=== PATIENT | male | born 1985 | race Caucasian/White ===

== ENCOUNTER 2017-01-21 11:10 | Inpatient (IN) | payer OTHER ==
[2017-01-21 11:24] VITALS: BMI 18.8
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
[2017-01-21] MEDS ORDERED: P-EPHED 60MG/TRIPROLIDI 2.5MG TABLET PO PRN (15:01)
[2017-01-21] MEDS ORDERED: MAGNESIUM CITRATE 300 ML BOTTLE PO PRN (15:01)
[2017-01-21] MEDS ORDERED: NICOTINE POLACRILEX 4 MG GUM BUC PRN (15:01)
[2017-01-21] MEDS ORDERED: MENTHOL/PHENOL 1 EACH UD MM PRN (15:01)
[2017-01-21] MEDS ORDERED: MAG HYDROX/AL HYDROX/SIMETH 30 ML UNIT-DOSE CUP PO PRN (15:01)
[2017-01-21] MEDS ORDERED: LOPERAMIDE HCL 2 MG CAPSULE PO PRN (15:01)
[2017-01-21] MEDS ORDERED: guaiFENesin/D-METHORPHAN HB 10 ML UNIT-DOSE CUPS PO PRN (15:01)
[2017-01-21] MEDS ORDERED: IBUPROFEN 400 MG TABLET (FP) PO PRN (15:01)
[2017-01-21] MEDS ORDERED: MAGNESIUM HYDROX 2400MG/30ML ORAL SUSPENSION 30 ML CUP PO PRN (15:01)
[2017-01-21] MEDS ORDERED: ACETAMINOPHEN 325 MG TABLET (FP) PO PRN (15:01)
[2017-01-21] MEDS ORDERED: diazePAM 5 MG TABLET PO ONE (15:30)
[2017-01-21] MEDS ORDERED: METHADONE HCL 10 MG TABLET (FOR DETOX USE ONLY) PO ONE ×2 (15:31→23:00)
[2017-01-21] MEDS: NICOTINE 21 MG/24 HOURS TOPICAL PATCH TD SCH (15:50)
[2017-01-21] MEDS: THIAMINE HCL 100 MG TABLET (FP) PO SCH (22:08)
[2017-01-21] MEDS: diphenhydrAMINE HCL 50 MG CAPSULE PO PRN (22:08)
[2017-01-21] MEDS: CEPHALEXIN MONOHYDRATE 500 MG CAPSULE (UD) PO SCH (22:08)
[2017-01-21] MEDS: diazePAM 5 MG TABLET PO SCH (22:08)
[2017-01-21] MEDS: BACITRACIN 0.9 GM PACKET TP SCH (22:08)
[2017-01-21 22:41] LABS: URINE APPEARANCE CLEAR; URINE BILIRUBIN NEGATIVE (NEGATIVE); URINE BLOOD NEGATIVE (NEGATIVE); URINE COLOR YELLOW; URINE GLUCOSE (UA) NEGATIVE (NEGATIVE); URINE KETONE TRACE (NEGATIVE); URINE LEUK ESTERASE NEGATIVE (NEGATIVE); URINE NITRITE NEGATIVE (NEGATIVE); URINE PROTEIN NEGATIVE (NEGATIVE); URINE UROBILINOGEN NEGATIVE E.U./dl (0.2-1.0)
[2017-01-22] MEDS: diazePAM 5 MG TABLET PO SCH ×3 (05:39→22:04)
[2017-01-22] MEDS ORDERED: METHADONE HCL 10 MG TABLET (FOR DETOX USE ONLY) PO SCH (10:00)
[2017-01-22 10:06] LABS: MCHC 33.6 g/dl (32.0-35.9); MEAN CELL VOLUME 95.2 fl (80-96); MEAN PLT VOLUME 9.3 fl (7.5-11.1); PLATELET COUNT 167 K/MM3 (134-434); RDW 12.5 % (11.9-15.9)
[2017-01-22] MEDS: NICOTINE 21 MG/24 HOURS TOPICAL PATCH TD SCH (10:13)
[2017-01-22] MEDS: BACITRACIN 0.9 GM PACKET TP SCH ×2 (10:13→22:04)
[2017-01-22] MEDS: CEPHALEXIN MONOHYDRATE 500 MG CAPSULE (UD) PO SCH ×2 (10:13→22:04)
[2017-01-22] MEDS: PRENATAL VITAMINS W/ FOLIC ACID TABLET (FP) PO SCH (10:13)
[2017-01-22] MEDS: diazePAM 5 MG TABLET PO PRN (10:13)
[2017-01-22 10:45] LABS: ALBUMIN 4.2 g/dl (3.4-5.0); ALK PHOS 96 U/L (45-117); ANION GAP 8 (8-16); BILIRUBIN,TOTAL 0.4 mg/dL (0.2-1.0); CALCIUM 9.5 mg/dL (8.5-10.1); CO2 30 mmol/L (21-32); GLUCOSE,RANDOM 70 mg/dL (74-106); SGOT/AST 14 U/L (15-37); SGPT/ALT 25 U/L (12-78); TOT PROT 7.7 g/dl (6.4-8.2)
--- NOTE | 2017-01-22 11:22 | PN ---
[facility] CIWA - CIWA Score Nausea/Vomitin-No Nausea/No Vomiting Muscle Tremors: 4-Moderate,w/Arms Extend Anxiety: 4-Mod. Anxious/Guarded Agitation: 4-Moderately Restless Paroxysmal Sweats: 1-Minimal Palms Moist Orientation: 0-Oriented Tacttile Disturbances: 3-Moderate Itch/Numb/Burn Auditory Disturbances: 0-None Visual Disturbances: 0-None Headache: 0-None Present CIWA-Ar Total Score: 16 S COWS - Scale Resting Pulse: 0= [place] 80 or Below Sweatin= Chills/Flushing Restless Observation: 3= Extraneous Movement Pupil Size: 2= Moderately Dilated Bone or Joint Aches: 4=Acute Joint/Muscle Pain Runny Nose/ Eye Tearin= Nasal Congestion GI Upset > 30mins: 1= Stomach Cramp Tremor Observation of Outstretched Hands: 2= Slight Tremor Visible Yawning Observation: 1= 1-2x During Session Anxiety or Irritability: 2=Irritable/Anxious Goose Flesh Skin: 0=Smooth Skin COWS Score: 17 S Progress Note (SOAP) Subjective: ANXIETY, SWEATS, MUSCLE ACHES, INTERMITTENT SLEEP. Objective: 01/22/17 11:21 Vital Signs Temperature 97.1 F L 01/22/17 09:30 Pulse Rate 80 01/22/17 09:30 Respiratory Rate 20 01/22/17 09:30 Blood Pressure 114/81 01/22/17 09:30 O2 Sat by Pulse Oximetry (%) Laboratory Last Values WBC 9.0 K/mm3 (4.0-10.0) 01/22/17 06:00 RBC 4.59 M/mm3 (4.00-5.60) 01/22/17 06:00 Hgb 14.7 GM/dL (11.7-16.9) 01/22/17 06:00 Hct 43.8 % (35.4-49) 01/22/17 06:00 MCV 95.2 fl (80-96) 01/22/17 06:00 MCHC 33.6 g/dl (32.0-35.9) 01/22/17 06:00 RDW 12.5 % (11.9-15.9) 01/22/17 06:00 Plt Count 167 K/MM3 (134-434) 01/22/17 06:00 MPV 9.3 fl (7.5-11.1) 01/22/17 06:00 Sodium 139 mmol/L (136-145) 01/22/17 06:00 Potassium 4.5 mmol/L (3.5-5.1) 01/22/17 06:00 Chloride 101 mmol/L (98-107) 01/22/17 06:00 Carbon Dioxide 30 mmol/L (21-32) 01/22/17 06:00 Anion Gap 8 (8-16) 01/22/17 06:00 BUN 15 mg/dL (7-18) 01/22/17 06:00 Creatinine 1.0 mg/dL (0.7-1.3) 01/22/17 06:00 Creat Clearance w eGFR > 60 (>60) 01/22/17 06:00 Random Glucose 70 mg/dL (74-106) L 01/22/17 06:00 Calcium 9.5 mg/dL (8.5-10.1) 01/22/17 06:00 Total Bilirubin 0.4 mg/dL (0.2-1.0) 01/22/17 06:00 AST 14 U/L (15-37) L 01/22/17 06:00 ALT 25 U/L (12-78) 01/22/17 06:00 Alkaline Phosphatase 96 U/L (45-117) 01/22/17 06:00 Total Protein 7.7 g/dl (6.4-8.2) 01/22/17 06:00 Albumin 4.2 g/dl (3.4-5.0) 01/22/17 06:00 Urine Color Yellow 01/21/17 19:38 Urine Appearance Clear 01/21/17 19:38 Urine pH 5.0 (5.0-8.0) 01/21/17 19:38 Ur Specific [place] 1.032 (1.001-1.035) 01/21/17 19:38 Urine Protein Negative (NEGATIVE) 01/21/17 19:38 Urine Glucose (UA) Negative (NEGATIVE) 01/21/17 19:38 Urine Ketones Trace (NEGATIVE) H 01/21/17 19:38 Urine Blood Negative (NEGATIVE) 01/21/17 19:38 Urine Nitrite Negative (NEGATIVE) 01/21/17 19:38 Urine Bilirubin Negative (NEGATIVE) 01/21/17 19:38 Urine Urobilinogen Negative E.U./dl (0.2-1.0) 01/21/17 19:38 Ur Leukocyte Esterase Negative (NEGATIVE) 01/21/17 19:38 Assessment: 01/22/17 11:21 WITHDRAWAL SX Plan: CONTINUE DETOX
[2017-01-22] MEDS: CYCLOBENZAPRINE HCL 10 MG TABLET (FP) PO SCH ×2 (13:46→22:04)
--- NOTE | 2017-01-22 13:55 | EKG ---
Test Reason : Blood Pressure : / mmHG Vent. Rate : 076 BPM Atrial Rate : 076 BPM P-R Int : 134 ms QRS Dur : 100 ms QT Int : 388 ms P-R-T Axes : 080 079 065 degrees QTc Int : 436 ms NORMAL SINUS RHYTHM POSSIBLE LEFT ATRIAL ENLARGEMENT LEFT VENTRICULAR HYPERTROPHY ABNORMAL ECG NO PREVIOUS ECGS AVAILABLE Confirmed by DONNELL FERNANDEZ MD ([id number]) on 01/22/2017 1:54:47 PM Referred By: Confirmed By:DONNELL FERNANDEZ MD
[2017-01-22] MEDS: diphenhydrAMINE HCL 50 MG CAPSULE PO PRN (22:04)
[2017-01-22] MEDS: THIAMINE HCL 100 MG TABLET (FP) PO SCH (22:05)
[2017-01-23] MEDS: CYCLOBENZAPRINE HCL 10 MG TABLET (FP) PO SCH ×3 (05:30→22:05)
[2017-01-23] MEDS: diazePAM 5 MG TABLET PO PRN (05:30)
--- NOTE | 2017-01-23 09:14 | PN ---
[facility] CIWA - CIWA Score Nausea/Vomitin-No Nausea/No Vomiting Muscle Tremors: 4-Moderate,w/Arms Extend Anxiety: 4-Mod. Anxious/Guarded Agitation: 4-Moderately Restless Paroxysmal Sweats: 1-Minimal Palms Moist Orientation: 0-Oriented Tacttile Disturbances: 3-Moderate Itch/Numb/Burn Auditory Disturbances: 0-None Visual Disturbances: 0-None Headache: 0-None Present CIWA-Ar Total Score: 16 [facility] COWS - Scale Resting Pulse: 0= [place] 80 or Below Sweatin= Chills/Flushing Restless Observation: 3= Extraneous Movement Pupil Size: 2= Moderately Dilated Bone or Joint Aches: 4=Acute Joint/Muscle Pain Runny Nose/ Eye Tearin= Nasal Congestion GI Upset > 30mins: 1= Stomach Cramp Tremor Observation of Outstretched Hands: 1= Tremor [place], Not Seen Yawning Observation: 1= 1-2x During Session Anxiety or Irritability: 1=Feels Anxious/Irritable Goose Flesh Skin: 0=Smooth Skin COWS Score: 15 [facility] Progress Note (SOAP) Subjective: ANXIETY,SWEATS,FATIGUE. Objective: 01/23/17 09:14 Vital Signs Temperature 95.4 F L 01/23/17 06:07 Pulse Rate 53 L 01/23/17 06:07 Respiratory Rate 16 01/23/17 06:07 Blood Pressure 98/67 01/23/17 06:07 O2 Sat by Pulse Oximetry (%) Laboratory Last Values WBC 9.0 K/mm3 (4.0-10.0) 01/22/17 06:00 RBC 4.59 M/mm3 (4.00-5.60) 01/22/17 06:00 Hgb 14.7 GM/dL (11.7-16.9) 01/22/17 06:00 Hct 43.8 % (35.4-49) 01/22/17 06:00 MCV 95.2 fl (80-96) 01/22/17 06:00 MCHC 33.6 g/dl (32.0-35.9) 01/22/17 06:00 RDW 12.5 % (11.9-15.9) 01/22/17 06:00 Plt Count 167 K/MM3 (134-434) 01/22/17 06:00 MPV 9.3 fl (7.5-11.1) 01/22/17 06:00 Sodium 139 mmol/L (136-145) 01/22/17 06:00 Potassium 4.5 mmol/L (3.5-5.1) 01/22/17 06:00 Chloride 101 mmol/L (98-107) 01/22/17 06:00 Carbon Dioxide 30 mmol/L (21-32) 01/22/17 06:00 Anion Gap 8 (8-16) 01/22/17 06:00 BUN 15 mg/dL (7-18) 01/22/17 06:00 Creatinine 1.0 mg/dL (0.7-1.3) 01/22/17 06:00 Creat Clearance w eGFR > 60 (>60) 01/22/17 06:00 Random Glucose 70 mg/dL (74-106) L 01/22/17 06:00 Calcium 9.5 mg/dL (8.5-10.1) 01/22/17 06:00 Total Bilirubin 0.4 mg/dL (0.2-1.0) 01/22/17 06:00 AST 14 U/L (15-37) L 01/22/17 06:00 ALT 25 U/L (12-78) 01/22/17 06:00 Alkaline Phosphatase 96 U/L (45-117) 01/22/17 06:00 Total Protein 7.7 g/dl (6.4-8.2) 01/22/17 06:00 Albumin 4.2 g/dl (3.4-5.0) 01/22/17 06:00 Urine Color Yellow 01/21/17 19:38 Urine Appearance Clear 01/21/17 19:38 Urine pH 5.0 (5.0-8.0) 01/21/17 19:38 Ur Specific [place] 1.032 (1.001-1.035) 01/21/17 19:38 Urine Protein Negative (NEGATIVE) 01/21/17 19:38 Urine Glucose (UA) Negative (NEGATIVE) 01/21/17 19:38 Urine Ketones Trace (NEGATIVE) H 01/21/17 19:38 Urine Blood Negative (NEGATIVE) 01/21/17 19:38 Urine Nitrite Negative (NEGATIVE) 01/21/17 19:38 Urine Bilirubin Negative (NEGATIVE) 01/21/17 19:38 Urine Urobilinogen Negative E.U./dl (0.2-1.0) 01/21/17 19:38 Ur Leukocyte Esterase Negative (NEGATIVE) 01/21/17 19:38 RPR Titer Nonreactive (NONREACTIVE) 01/22/17 06:00 Hepatitis C Antibody 0.3 s/co ratio (0.0-0.9) 01/21/17 13:00 Assessment: 01/23/17 09:14 WITHDRAWAL SX Plan: CONTINUE DETOX
[2017-01-23] MEDS: PRENATAL VITAMINS W/ FOLIC ACID TABLET (FP) PO SCH (10:03)
[2017-01-23] MEDS: BACITRACIN 0.9 GM PACKET TP SCH ×2 (10:03→22:07)
[2017-01-23] MEDS: METHADONE HCL 5 MG TABLET (FOR DETOX USE ONLY) PO SCH (10:03)
[2017-01-23] MEDS: diazePAM 5 MG TABLET PO SCH ×2 (10:03→22:05)
[2017-01-23] MEDS: CEPHALEXIN MONOHYDRATE 500 MG CAPSULE (UD) PO SCH ×2 (10:03→22:05)
[2017-01-23] MEDS: NICOTINE 21 MG/24 HOURS TOPICAL PATCH TD SCH (10:04)
[2017-01-23] MEDS: THIAMINE HCL 100 MG TABLET (FP) PO SCH (22:07)
[2017-01-23] MEDS: diphenhydrAMINE HCL 50 MG CAPSULE PO PRN (22:07)
[2017-01-24] MEDS: CYCLOBENZAPRINE HCL 10 MG TABLET (FP) PO SCH ×3 (05:35→22:06)
[2017-01-24] MEDS: diazePAM 5 MG TABLET PO PRN ×2 (05:36→13:29)
[2017-01-24] MEDS: BACITRACIN 0.9 GM PACKET TP SCH ×2 (10:05→22:06)
[2017-01-24] MEDS: METHADONE HCL 5 MG TABLET (FOR DETOX USE ONLY) PO SCH (10:05)
[2017-01-24] MEDS: CEPHALEXIN MONOHYDRATE 500 MG CAPSULE (UD) PO SCH ×2 (10:05→22:05)
[2017-01-24] MEDS: NICOTINE 21 MG/24 HOURS TOPICAL PATCH TD SCH (10:05)
[2017-01-24] MEDS: PRENATAL VITAMINS W/ FOLIC ACID TABLET (FP) PO SCH (10:05)
[2017-01-24] MEDS: diazePAM 5 MG TABLET PO SCH ×2 (10:05→22:06)
--- NOTE | 2017-01-24 10:06 | PN ---
[facility] Progress Note (SOAP) Subjective: ANXIETY,SWEATS,TREMORS,INTERMITTENT SLEEP Objective: 01/24/17 10:06 Vital Signs Temperature 98.8 F 01/24/17 09:39 Pulse Rate 73 01/24/17 09:39 Respiratory Rate 18 01/24/17 09:39 Blood Pressure 105/74 01/24/17 09:39 O2 Sat by Pulse Oximetry (%) Assessment: 01/24/17 10:06 WITHDRAWAL SX Plan: CONTINUE DETOX
--- NOTE | 2017-01-24 13:13 | PN ---
S Progress Note Note: NURSE CALLED TO SEE PATIENT WHO C/O HITTING HIS FINGER AGAINST THE SIDE TABLE IN HIS ROOM WHILE PUTTING HIS LUNCH TRAY ON THE TABLE. C/O PAIN AND DIFFICULTY MOVING THE SMALL FINGER DUE TO PAIN. EXAM: NO SWELLING SLIGHT REDNESS PLAN:COLD COMPRESS TO AREA XRAY OF RIGHT SMALL FINGER TODAY AT [facility].
--- NOTE | 2017-01-24 15:58 | PN ---
[facility] Progress Note Note: PT RETURNED TO [facility]. XRAY RIGHT SMALL FINGER NO ACUTE PATHOLOGY. CONTINUE COLD COMPRESS DIRECTED.
[2017-01-24] MEDS: THIAMINE HCL 100 MG TABLET (FP) PO SCH (22:05)
[2017-01-24] MEDS: diphenhydrAMINE HCL 50 MG CAPSULE PO PRN (22:06)
[2017-01-25] MEDS: diphenhydrAMINE HCL 50 MG CAPSULE PO PRN ×2 (01:00→22:07)
[2017-01-25] MEDS: CYCLOBENZAPRINE HCL 10 MG TABLET (FP) PO SCH ×3 (05:38→22:07)
[2017-01-25] MEDS: hydrOXYzine PAMOATE 25 MG CAPSULE (FP) PO PRN ×3 (05:38→17:54)
[2017-01-25] MEDS ORDERED: diazePAM 5 MG TABLET PO SCH (10:00)
[2017-01-25] MEDS ORDERED: METHADONE HCL 10 MG TABLET (FOR DETOX USE ONLY) PO SCH (10:00)
[2017-01-25] MEDS: CEPHALEXIN MONOHYDRATE 500 MG CAPSULE (UD) PO SCH ×2 (10:06→22:07)
[2017-01-25] MEDS: BACITRACIN 0.9 GM PACKET TP SCH ×2 (10:06→22:06)
[2017-01-25] MEDS: NICOTINE 21 MG/24 HOURS TOPICAL PATCH TD SCH (10:07)
[2017-01-25] MEDS: PRENATAL VITAMINS W/ FOLIC ACID TABLET (FP) PO SCH (10:07)
--- NOTE | 2017-01-25 13:30 | PN ---
[facility] Progress Note (SOAP) Subjective: Sweating,interrupted sleep,restless Objective: 01/25/17 13:29 Vital Signs - 8 hr 01/25/17 01/25/17 06:38 10:42 Temperature 96.4 F L Pulse Rate 61 76 Respiratory 18 18 Rate Blood Pressure 106/67 115/71 Laboratory Tests 01/21/17 01/21/17 01/22/17 13:00 19:38 06:00 WBC 9.0 RBC 4.59 Hgb 14.7 Hct 43.8 MCV 95.2 MCHC 33.6 RDW 12.5 Plt Count 167 MPV 9.3 Sodium Potassium Chloride Carbon Dioxide Anion Gap BUN Creatinine Creat Clearance w eGFR Random Glucose Calcium Total Bilirubin AST ALT Alkaline Phosphatase Total Protein Albumin Urine Color Yellow Urine Appearance Clear Urine pH 5.0 Ur Specific [place] 1.032 Urine Protein Negative Urine Glucose (UA) Negative Urine Ketones Trace H Urine Blood Negative Urine Nitrite Negative Urine Bilirubin Negative Urine Urobilinogen Negative Ur Leukocyte Esterase Negative RPR Titer Hepatitis C Antibody 0.3 01/22/17 01/22/17 06:00 06:00 WBC RBC Hgb Hct MCV MCHC RDW Plt Count MPV Sodium 139 Potassium 4.5 Chloride 101 Carbon Dioxide 30 Anion Gap 8 BUN 15 Creatinine 1.0 Creat Clearance w eGFR > 60 Random Glucose 70 L Calcium 9.5 Total Bilirubin 0.4 AST 14 L ALT 25 Alkaline Phosphatase 96 Total Protein 7.7 Albumin 4.2 Urine Color Urine Appearance Urine pH Ur Specific [place] Urine Protein Urine Glucose (UA) Urine Ketones Urine Blood Urine Nitrite Urine Bilirubin Urine Urobilinogen Ur Leukocyte Esterase RPR Titer Nonreactive Hepatitis C Antibody labs noted Assessment: 01/25/17 13:29 Withdrawal sx. Plan: Continue detox
[2017-01-25] MEDS: THIAMINE HCL 100 MG TABLET (FP) PO SCH (22:08)
[2017-01-26] MEDS: CYCLOBENZAPRINE HCL 10 MG TABLET (FP) PO SCH (05:08)
[2017-01-26] MEDS: hydrOXYzine PAMOATE 25 MG CAPSULE (FP) PO PRN (05:09)
[2017-01-26] MEDS ORDERED: METHADONE HCL 5 MG TABLET (FOR DETOX USE ONLY) PO SCH (06:00)
[2017-01-26 06:25] VITALS: BP 108/67; PULSE 77; TEMP 96.6
--- NOTE | 2017-01-26 13:12 | DS ---
[facility] Detox Discharge Summary Admission Date: 01/21/17 Discharge Date: 01/26/17 - History Present History: Cocaine Dependence, Opioid Dependence, Sedative Dependence Pertinent Past History: PPD Positive - Physical Exam Results Vital Signs: Vital Signs Temperature 96.6 F L 01/26/17 06:24 Pulse Rate 77 01/26/17 06:24 Respiratory Rate 18 01/26/17 06:24 Blood Pressure 108/67 01/26/17 06:24 O2 Sat by Pulse Oximetry (%) Pertinent Admission Physical Exam Findings: Withdrawal symptoms Laboratory Tests 01/21/17 01/21/17 01/22/17 13:00 19:38 06:00 WBC 9.0 RBC 4.59 Hgb 14.7 Hct 43.8 MCV 95.2 MCHC 33.6 RDW 12.5 Plt Count 167 MPV 9.3 Sodium Potassium Chloride Carbon Dioxide Anion Gap BUN Creatinine Creat Clearance w eGFR Random Glucose Calcium Total Bilirubin AST ALT Alkaline Phosphatase Total Protein Albumin Urine Color Yellow Urine Appearance Clear Urine pH 5.0 Ur Specific [place] 1.032 Urine Protein Negative Urine Glucose (UA) Negative Urine Ketones Trace H Urine Blood Negative Urine Nitrite Negative Urine Bilirubin Negative Urine Urobilinogen Negative Ur Leukocyte Esterase Negative RPR Titer Hepatitis C Antibody 0.3 01/22/17 01/22/17 06:00 06:00 WBC RBC Hgb Hct MCV MCHC RDW Plt Count MPV Sodium 139 Potassium 4.5 Chloride 101 Carbon Dioxide 30 Anion Gap 8 BUN 15 Creatinine 1.0 Creat Clearance w eGFR > 60 Random Glucose 70 L Calcium 9.5 Total Bilirubin 0.4 AST 14 L ALT 25 Alkaline Phosphatase 96 Total Protein 7.7 Albumin 4.2 Urine Color Urine Appearance Urine pH Ur Specific [place] Urine Protein Urine Glucose (UA) Urine Ketones Urine Blood Urine Nitrite Urine Bilirubin Urine Urobilinogen Ur Leukocyte Esterase RPR Titer Nonreactive Hepatitis C Antibody Labs noted - Treatment Hospital Course: Detox Protocol Followed, Detoxed Safely, Responded well, Discharged Condition Good - Medication Discharge Medications: Ambulatory Orders NK [No Known Home Medication] 01/21/17 - Diagnosis (1) Cocaine dependence, uncomplicated Status: Chronic (2) Opioid dependence with withdrawal Status: Acute (3) Sedative, hypnotic or anxiolytic dependence with withdrawal, uncomplicated Status: Acute (4) Nicotine dependence Status: Acute (5) Positive PPD Status: Chronic - AMA Did Patient Leave Against Medical Advice: No
== END 2017-01-26 09:41 | disposition home or self-care (01) | DRG 773 ==
LOC: YASAS 11:10 → Y3N 15:24
PROVIDERS: ADMIT Internal Medicine; ATTEND Internal Medicine
PROC: HZ2ZZZZ Detoxification Services for Substance Abuse Treatment (ICD-10-PCS; principal; 2017-01-26)
DX: F11.23 Opioid dependence with withdrawal (principal); F13.230 Sedative, hypnotic or anxiolytic dependence with withdrawal, uncomplicated; F14.20 Cocaine dependence, uncomplicated; F17.210 Nicotine dependence, cigarettes, uncomplicated; L03.114 Cellulitis of left upper limb; R76.11 Nonspecific reaction to tuberculin skin test without active tuberculosis
CPT/HCPCS: 36415; 73140-TC-RT; 80053; 81003; 85027; 86593; 93005; 93010

== ENCOUNTER 2017-03-14 09:47 | Inpatient (IN) | payer OTHER ==
[2017-03-14 10:48] VITALS: BMI 18.6
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
[2017-03-14] MEDS ORDERED: LOPERAMIDE HCL 2 MG CAPSULE PO PRN (13:59)
[2017-03-14] MEDS ORDERED: guaiFENesin/D-METHORPHAN HB 10 ML UNIT-DOSE CUPS PO PRN (13:59)
[2017-03-14] MEDS ORDERED: P-EPHED 60MG/TRIPROLIDI 2.5MG TABLET PO PRN (13:59)
[2017-03-14] MEDS ORDERED: IBUPROFEN 400 MG TABLET (FP) PO PRN (13:59)
[2017-03-14] MEDS ORDERED: MAG HYDROX/AL HYDROX/SIMETH 30 ML UNIT-DOSE CUP PO PRN (13:59)
[2017-03-14] MEDS ORDERED: MENTHOL/PHENOL 1 EACH UD MM PRN (13:59)
[2017-03-14] MEDS ORDERED: MAGNESIUM CITRATE 300 ML BOTTLE PO PRN (13:59)
[2017-03-14] MEDS ORDERED: ACETAMINOPHEN 325 MG TABLET (FP) PO PRN (13:59)
[2017-03-14] MEDS ORDERED: NICOTINE POLACRILEX 2 MG GUM BUC PRN (13:59)
[2017-03-14] MEDS ORDERED: hydrOXYzine PAMOATE 25 MG CAPSULE (FP) PO PRN (13:59)
[2017-03-14] MEDS ORDERED: MAGNESIUM HYDROX 2400MG/30ML ORAL SUSPENSION 30 ML CUP PO PRN (13:59)
[2017-03-14] MEDS ORDERED: diazePAM 5 MG TABLET PO ONE (14:08)
[2017-03-14] MEDS ORDERED: METHADONE HCL 10 MG TABLET (FOR DETOX USE ONLY) PO ONE ×2 (14:09→23:00)
[2017-03-14] MEDS: NICOTINE 14 MG/24 HOURS TOPICAL PATCH TD SCH (14:33)
[2017-03-14] MEDS: diazePAM 5 MG TABLET PO SCH (22:08)
[2017-03-14] MEDS: THIAMINE HCL 100 MG TABLET (FP) PO SCH (22:08)
[2017-03-14] MEDS: diphenhydrAMINE HCL 50 MG CAPSULE PO PRN (22:09)
[2017-03-14 22:38] LABS: URINE APPEARANCE CLEAR; URINE BILIRUBIN NEGATIVE (NEGATIVE); URINE BLOOD NEGATIVE (NEGATIVE); URINE COLOR LTYELLOW; URINE GLUCOSE (UA) NEGATIVE (NEGATIVE); URINE KETONE NEGATIVE (NEGATIVE); URINE LEUK ESTERASE NEGATIVE (NEGATIVE); URINE NITRITE NEGATIVE (NEGATIVE); URINE PROTEIN NEGATIVE (NEGATIVE); URINE UROBILINOGEN NEGATIVE E.U./dl (0.2-1.0)
[2017-03-15] MEDS: diazePAM 5 MG TABLET PO SCH ×3 (05:22→22:09)
[2017-03-15] MEDS ORDERED: METHADONE HCL 10 MG TABLET (FOR DETOX USE ONLY) PO SCH (10:00)
--- NOTE | 2017-03-15 10:11 | EKG ---
Test Reason : Blood Pressure : / mmHG Vent. Rate : 065 BPM Atrial Rate : 065 BPM P-R Int : 130 ms QRS Dur : 100 ms QT Int : 382 ms P-R-T Axes : 079 080 071 degrees QTc Int : 397 ms NORMAL SINUS RHYTHM POSSIBLE LEFT ATRIAL ENLARGEMENT NON-SPECIFIC INTRA-VENTRICULAR CONDUCTION DELAY EARLY REPOLARIZATION WHEN COMPARED WITH ECG OF 21-JAN-2017 16:19, NO SIGNIFICANT CHANGE WAS FOUND Confirmed by CAROLINA HODGE MD ([id number]) on 03/15/2017 10:10:57 AM Referred By: Confirmed By:CAROLINA HODGE MD
[2017-03-15 10:19] LABS: MCH 32.3 pg (25.7-33.7); MCHC 33.6 g/dl (32.0-35.9); MEAN PLT VOLUME 9.3 fl (7.5-11.1); PLATELET COUNT 174 K/MM3 (134-434)
[2017-03-15] MEDS: PRENATAL VITAMINS W/ FOLIC ACID TABLET (FP) PO SCH (10:26)
[2017-03-15] MEDS: NICOTINE 14 MG/24 HOURS TOPICAL PATCH TD SCH (10:27)
[2017-03-15] MEDS: diazePAM 5 MG TABLET PO PRN ×2 (10:30→18:24)
[2017-03-15 11:01] LABS: ALBUMIN 3.9 g/dl (3.4-5.0); ANION GAP 6 (8-16); CALCIUM 8.5 mg/dL (8.5-10.1); CO2 32 mmol/L (21-32); GLUCOSE,RANDOM 84 mg/dL (74-106)
[2017-03-15 11:04] LABS: ALK PHOS 75 U/L (45-117); BILIRUBIN,TOTAL 0.3 mg/dL (0.2-1.0); COCKROFT - GAULT 81.34; CREATININE 1.1 mg/dL (0.7-1.3); SGOT/AST 14 U/L (15-37); SGPT/ALT 20 U/L (12-78); TOT PROT 7.5 g/dl (6.4-8.2)
[2017-03-15 13:19] LABS: HIV 1 & 2 AB NEGATIVE; HIV 1 AGp24 NEGATIVE
[2017-03-15] MEDS: CYCLOBENZAPRINE HCL 10 MG TABLET (FP) PO PRN ×2 (13:58→22:46)
--- NOTE | 2017-03-15 13:58 | PN ---
[facility] CIWA - CIWA Score Nausea/Vomitin Muscle Tremors: 4-Moderate,w/Arms Extend Anxiety: 2 Agitation: 2 Paroxysmal Sweats: 3 Orientation: 0-Oriented Tacttile Disturbances: 2-Mild Itch/Numbness/Burn Auditory Disturbances: 2-Mild Harshness/Frighten Visual Disturbances: 0-None Headache: 0-None Present CIWA-Ar Total Score: 18 S COWS - Scale Resting Pulse: 0= [place] 80 or Below Sweatin= Chills/Flushing Restless Observation: 1= Difficult to Sit Still Pupil Size: 0= Normal to Room Light Bone or Joint Aches: 2= Severe Diffuse Aches Runny Nose/ Eye Tearin= Nasal Congestion GI Upset > 30mins: 1= Stomach Cramp Tremor Observation of Outstretched Hands: 2= Slight Tremor Visible Yawning Observation: 1= 1-2x During Session Anxiety or Irritability: 2=Irritable/Anxious Goose Flesh Skin: 3=Piloerection COWS Score: 14 [facility] Progress Note (SOAP) Subjective: Interrupted Sleep, Tremors, Sweating, Body Aches. Objective: PT. A & O X 3. 03/15/17 13:56 Vital Signs Temperature 98.8 F 03/15/17 10:15 Pulse Rate 68 03/15/17 10:15 Respiratory Rate 16 03/15/17 10:15 Blood Pressure 127/85 03/15/17 10:15 O2 Sat by Pulse Oximetry (%) Laboratory Last Values WBC 7.0 K/mm3 (4.0-10.0) 03/15/17 06:16 RBC 4.64 M/mm3 (4.00-5.60) 03/15/17 06:16 Hgb 15.0 GM/dL (11.7-16.9) 03/15/17 06:16 Hct 44.5 % (35.4-49) 03/15/17 06:16 MCV 96.0 fl (80-96) 03/15/17 06:16 MCHC 33.6 g/dl (32.0-35.9) 03/15/17 06:16 RDW 13.0 % (11.9-15.9) 03/15/17 06:16 Plt Count 174 K/MM3 (134-434) 03/15/17 06:16 MPV 9.3 fl (7.5-11.1) 03/15/17 06:16 Sodium 139 mmol/L (136-145) 03/15/17 06:16 Potassium 3.9 mmol/L (3.5-5.1) 03/15/17 06:16 Chloride 101 mmol/L (98-107) 03/15/17 06:16 Carbon Dioxide 32 mmol/L (21-32) 03/15/17 06:16 Anion Gap 6 (8-16) L 03/15/17 06:16 BUN 19 mg/dL (7-18) H D 03/15/17 06:16 Creatinine 1.1 mg/dL (0.7-1.3) 03/15/17 06:16 Creat Clearance w eGFR > 60 (>60) 03/15/17 06:16 Random Glucose 84 mg/dL (74-106) 03/15/17 06:16 Calcium 8.5 mg/dL (8.5-10.1) 03/15/17 06:16 Total Bilirubin 0.3 mg/dL (0.2-1.0) D 03/15/17 06:16 AST 14 U/L (15-37) L 03/15/17 06:16 ALT 20 U/L (12-78) 03/15/17 06:16 Alkaline Phosphatase 75 U/L (45-117) D 03/15/17 06:16 Total Protein 7.5 g/dl (6.4-8.2) 03/15/17 06:16 Albumin 3.9 g/dl (3.4-5.0) 03/15/17 06:16 Urine Color Ltyellow 03/14/17 13:00 Urine Appearance Clear 03/14/17 13:00 Urine pH 5.0 (5.0-8.0) 03/14/17 13:00 Ur Specific [place] 1.023 (1.001-1.035) 03/14/17 13:00 Urine Protein Negative (NEGATIVE) 03/14/17 13:00 Urine Glucose (UA) Negative (NEGATIVE) 03/14/17 13:00 Urine Ketones Negative (NEGATIVE) 03/14/17 13:00 Urine Blood Negative (NEGATIVE) 03/14/17 13:00 Urine Nitrite Negative (NEGATIVE) 03/14/17 13:00 Urine Bilirubin Negative (NEGATIVE) 03/14/17 13:00 Urine Urobilinogen Negative E.U./dl (0.2-1.0) 03/14/17 13:00 Ur Leukocyte Esterase Negative (NEGATIVE) 03/14/17 13:00 RPR Titer Nonreactive (NONREACTIVE) 03/15/17 06:16 HIV 1&2 Antibody Screen Negative 03/15/17 08:20 HIV P24 Antigen Negative 03/15/17 08:20 LABS NOTED. Assessment: 03/15/17 13:57 WITHDRAWAL SYMPTOMS. Plan: CONTINUE DETOX. ADVISED PATIENT TO FOLLOW-UP WITH MANAGER MAINTENANCE / REHAB MEDICAL PROVIDER AFTER DISCHARGE FROM DETOX FOR GENERAL MEDICAL ASSESSMENT AND FOR ABNORMAL ADMISSION LAB VALUES.
--- NOTE | 2017-03-15 15:33 | PN ---
[facility] Progress Note Note: Received report from Obed Sterling RN that patient approached her stating that he injured Index Finger of Left hand on faucet of bathroom sink while washing face. Upon inspection, small abrasion noted on top of distal aspect of index finger of left hand. Bleeding noted. No swelling noted. Patient able to flex finger. Patient reporting pain in Index finger of left hand. Patient himself requesting to have injury further medically evaluated. [facility] Radiology Dept. closed today and tomorrow. Report given to Dr. Chris Busby MD at [facility]. Pt. to be sent to [facility] via ambulance for further evaluation. Molly Goss NP
[2017-03-15 15:36] LABS: URINE APPEARANCE CLEAR; URINE BILIRUBIN NEGATIVE (NEGATIVE); URINE BLOOD NEGATIVE (NEGATIVE); URINE COLOR STRAW; URINE GLUCOSE (UA) NEGATIVE (NEGATIVE); URINE KETONE NEGATIVE (NEGATIVE); URINE LEUK ESTERASE NEGATIVE (NEGATIVE); URINE NITRITE NEGATIVE (NEGATIVE); URINE PROTEIN NEGATIVE (NEGATIVE); URINE UROBILINOGEN NEGATIVE E.U./dl (0.2-1.0)
[2017-03-15] MEDS: diphenhydrAMINE HCL 50 MG CAPSULE PO PRN (22:09)
[2017-03-15] MEDS: THIAMINE HCL 100 MG TABLET (FP) PO SCH (22:09)
[2017-03-16] MEDS: diazePAM 5 MG TABLET PO PRN ×3 (05:30→17:43)
[2017-03-16] MEDS: CYCLOBENZAPRINE HCL 10 MG TABLET (FP) PO PRN ×2 (05:31→15:47)
[2017-03-16] MEDS ORDERED: METHADONE HCL 5 MG TABLET (FOR DETOX USE ONLY) PO SCH (10:00)
[2017-03-16] MEDS ORDERED: diazePAM 5 MG TABLET PO SCH (10:00)
[2017-03-16] MEDS: PRENATAL VITAMINS W/ FOLIC ACID TABLET (FP) PO SCH (10:11)
[2017-03-16] MEDS: NICOTINE 14 MG/24 HOURS TOPICAL PATCH TD SCH (10:12)
--- NOTE | 2017-03-16 13:40 | PN ---
[facility] CIWA - CIWA Score Nausea/Vomitin-No Nausea/No Vomiting Muscle Tremors: 3 Anxiety: 4-Mod. Anxious/Guarded Agitation: 3 Paroxysmal Sweats: 3 Orientation: 0-Oriented Tacttile Disturbances: 0-None Auditory Disturbances: 0-None Visual Disturbances: 0-None Headache: 0-None Present CIWA-Ar Total Score: 13 [facility] COWS - Scale Resting Pulse: 0= [place] 80 or Below Sweatin=Flushed/Facial Moisture Restless Observation: 1= Difficult to Sit Still Pupil Size: 0= Normal to Room Light Bone or Joint Aches: 1= Mild Discomfort Runny Nose/ Eye Tearin= Runny Nose/Eyes GI Upset > 30mins: 2= Nausea/Diarrhea Tremor Observation of Outstretched Hands: 2= Slight Tremor Visible Yawning Observation: 1= 1-2x During Session Anxiety or Irritability: 2=Irritable/Anxious Goose Flesh Skin: 0=Smooth Skin COWS Score: 13 [facility] Progress Note (SOAP) Subjective: Anxiety,sweating,interrupted sleep,restless,muscle aches,tremors. Objective: 03/16/17 13:38 Vital Signs - 8 hr 03/16/17 03/16/17 06:00 09:51 Temperature 97.2 F L 98.1 F Pulse Rate 65 72 Respiratory 18 18 Rate Blood Pressure 97/64 119/62 Laboratory Tests 03/14/17 03/15/17 03/15/17 13:00 06:16 06:16 WBC 7.0 RBC 4.64 Hgb 15.0 Hct 44.5 MCV 96.0 MCHC 33.6 RDW 13.0 Plt Count 174 MPV 9.3 Sodium 139 Potassium 3.9 Chloride 101 Carbon Dioxide 32 Anion Gap 6 L BUN 19 H D Creatinine 1.1 Creat Clearance w eGFR > 60 Random Glucose 84 Calcium 8.5 Total Bilirubin 0.3 D AST 14 L ALT 20 Alkaline Phosphatase 75 D Total Protein 7.5 Albumin 3.9 Urine Color Ltyellow Urine Appearance Clear Urine pH 5.0 Ur Specific [place] 1.023 Urine Protein Negative Urine Glucose (UA) Negative Urine Ketones Negative Urine Blood Negative Urine Nitrite Negative Urine Bilirubin Negative Urine Urobilinogen Negative Ur Leukocyte Esterase Negative RPR Titer HIV 1&2 Antibody Screen HIV P24 Antigen 03/15/17 03/15/17 03/15/17 06:16 08:20 14:00 WBC RBC Hgb Hct MCV MCHC RDW Plt Count MPV Sodium Potassium Chloride Carbon Dioxide Anion Gap BUN Creatinine Creat Clearance w eGFR Random Glucose Calcium Total Bilirubin AST ALT Alkaline Phosphatase Total Protein Albumin Urine Color Straw Urine Appearance Clear Urine pH 8.0 D Ur Specific [place] 1.011 Urine Protein Negative Urine Glucose (UA) Negative Urine Ketones Negative Urine Blood Negative Urine Nitrite Negative Urine Bilirubin Negative Urine Urobilinogen Negative Ur Leukocyte Esterase Negative RPR Titer Nonreactive HIV 1&2 Antibody Screen Negative HIV P24 Antigen Negative labs noted Assessment: 03/16/17 13:39 Withdrawal sx. Plan: Continue detox
[2017-03-16 17:38] VITALS: BP 111/66; PULSE 65; TEMP 97.9
--- NOTE | 2017-03-16 19:40 | DS ---
[facility] Detox Discharge Summary Admission Date: 03/14/17 Discharge Date: 03/16/17 - History Present History: Cocaine Dependence, Opioid Dependence, Sedative Dependence Pertinent Past History: PPD+ - Physical Exam Results Vital Signs: Vital Signs Temperature 97.9 F 03/16/17 17:37 Pulse Rate 65 03/16/17 17:37 Respiratory Rate 18 03/16/17 17:37 Blood Pressure 111/66 03/16/17 17:37 O2 Sat by Pulse Oximetry (%) Pertinent Admission Physical Exam Findings: Withdrawal sx. Laboratory Last Values WBC 7.0 K/mm3 (4.0-10.0) 03/15/17 06:16 RBC 4.64 M/mm3 (4.00-5.60) 03/15/17 06:16 Hgb 15.0 GM/dL (11.7-16.9) 03/15/17 06:16 Hct 44.5 % (35.4-49) 03/15/17 06:16 MCV 96.0 fl (80-96) 03/15/17 06:16 MCHC 33.6 g/dl (32.0-35.9) 03/15/17 06:16 RDW 13.0 % (11.9-15.9) 03/15/17 06:16 Plt Count 174 K/MM3 (134-434) 03/15/17 06:16 MPV 9.3 fl (7.5-11.1) 03/15/17 06:16 Sodium 139 mmol/L (136-145) 03/15/17 06:16 Potassium 3.9 mmol/L (3.5-5.1) 03/15/17 06:16 Chloride 101 mmol/L (98-107) 03/15/17 06:16 Carbon Dioxide 32 mmol/L (21-32) 03/15/17 06:16 Anion Gap 6 (8-16) L 03/15/17 06:16 BUN 19 mg/dL (7-18) H D 03/15/17 06:16 Creatinine 1.1 mg/dL (0.7-1.3) 03/15/17 06:16 Creat Clearance w eGFR > 60 (>60) 03/15/17 06:16 Random Glucose 84 mg/dL (74-106) 03/15/17 06:16 Calcium 8.5 mg/dL (8.5-10.1) 03/15/17 06:16 Total Bilirubin 0.3 mg/dL (0.2-1.0) D 03/15/17 06:16 AST 14 U/L (15-37) L 03/15/17 06:16 ALT 20 U/L (12-78) 03/15/17 06:16 Alkaline Phosphatase 75 U/L (45-117) D 03/15/17 06:16 Total Protein 7.5 g/dl (6.4-8.2) 03/15/17 06:16 Albumin 3.9 g/dl (3.4-5.0) 03/15/17 06:16 Urine Color Straw 03/15/17 14:00 Urine Appearance Clear 03/15/17 14:00 Urine pH 8.0 (5.0-8.0) D 03/15/17 14:00 Ur Specific [place] 1.011 (1.001-1.035) 03/15/17 14:00 Urine Protein Negative (NEGATIVE) 03/15/17 14:00 Urine Glucose (UA) Negative (NEGATIVE) 03/15/17 14:00 Urine Ketones Negative (NEGATIVE) 03/15/17 14:00 Urine Blood Negative (NEGATIVE) 03/15/17 14:00 Urine Nitrite Negative (NEGATIVE) 03/15/17 14:00 Urine Bilirubin Negative (NEGATIVE) 03/15/17 14:00 Urine Urobilinogen Negative E.U./dl (0.2-1.0) 03/15/17 14:00 Ur Leukocyte Esterase Negative (NEGATIVE) 03/15/17 14:00 RPR Titer Nonreactive (NONREACTIVE) 03/15/17 06:16 HIV 1&2 Antibody Screen Negative 03/15/17 08:20 HIV P24 Antigen Negative 03/15/17 08:20 labs noted - Medication Discharge Medications: Ambulatory Orders NK [No Known Home Medication] 01/21/17 - Diagnosis (1) Cocaine dependence, uncomplicated Status: Acute (2) Nicotine dependence Status: Acute Qualifiers: Nicotine product type: cigarettes Substance use status: uncomplicated Qualified Code(s): F17.210 - Nicotine dependence, cigarettes, uncomplicated (3) Opioid dependence with withdrawal Status: Acute (4) Sedative, hypnotic or anxiolytic dependence with withdrawal, uncomplicated Status: Acute - AMA Did Patient Leave Against Medical Advice: Yes
[2017-03-18] MEDS ORDERED: METHADONE HCL 10 MG TABLET (FOR DETOX USE ONLY) PO SCH (10:00)
[2017-03-18] MEDS ORDERED: diazePAM 5 MG TABLET PO SCH (10:00)
[2017-03-19] MEDS ORDERED: METHADONE HCL 5 MG TABLET (FOR DETOX USE ONLY) PO SCH (06:00)
== END 2017-03-16 18:45 | disposition left against medical advice (07) | DRG 770 ==
LOC: YASAS 09:47 → Y6N 13:18
PROVIDERS: ADMIT Internal Medicine; ATTEND Internal Medicine
PROC: HZ2ZZZZ Detoxification Services for Substance Abuse Treatment (ICD-10-PCS; principal; 2017-03-14)
DX: F11.23 Opioid dependence with withdrawal (principal); F13.230 Sedative, hypnotic or anxiolytic dependence with withdrawal, uncomplicated; F14.20 Cocaine dependence, uncomplicated; F17.210 Nicotine dependence, cigarettes, uncomplicated; S69.92XA Unspecified injury of left wrist, hand and finger(s), initial encounter; X58.XXXA Exposure to other specified factors, initial encounter; Y93.9 Activity, unspecified; Y92.231 Patient bathroom in hospital as the place of occurrence of the external cause
CPT/HCPCS: 36415; 80053; 81003; 85027; 86593; 87389; 93005; 93010

== ENCOUNTER 2017-03-15 16:18 | Emergency (ER) | payer OTHER ==
[2017-03-15 16:49] VITALS: BP 114/72; PULSE 68; TEMP 98.2; BMI 19.3
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
== END 2017-03-15 18:00 | disposition home or self-care (01) ==
LOC: JER 16:18 → JERFT 16:18
DX: S60.122A Contusion of left index finger with damage to nail, initial encounter (principal); W22.8XXA Striking against or struck by other objects, initial encounter; Y93.89 Activity, other specified; Y92.238 Other place in hospital as the place of occurrence of the external cause; F11.20 Opioid dependence, uncomplicated; F10.20 Alcohol dependence, uncomplicated
CPT/HCPCS: 73140-TC-LT; 99281-25

== ENCOUNTER 2017-03-21 08:34 | Inpatient (IN) | payer OTHER ==
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
[2017-03-21] MEDS ORDERED: MAGNESIUM HYDROX 2400MG/30ML ORAL SUSPENSION 30 ML CUP PO PRN (13:22)
[2017-03-21] MEDS ORDERED: NICOTINE POLACRILEX 4 MG GUM BUC PRN (13:22)
[2017-03-21] MEDS ORDERED: MAGNESIUM CITRATE 300 ML BOTTLE PO PRN (13:22)
[2017-03-21] MEDS ORDERED: guaiFENesin/D-METHORPHAN HB 10 ML UNIT-DOSE CUPS PO PRN (13:22)
[2017-03-21] MEDS ORDERED: P-EPHED 60MG/TRIPROLIDI 2.5MG TABLET PO PRN (13:22)
[2017-03-21] MEDS ORDERED: LOPERAMIDE HCL 2 MG CAPSULE PO PRN (13:22)
[2017-03-21] MEDS ORDERED: IBUPROFEN 400 MG TABLET (FP) PO PRN (13:22)
[2017-03-21] MEDS ORDERED: ACETAMINOPHEN 325 MG TABLET (FP) PO PRN (13:22)
[2017-03-21] MEDS ORDERED: MAG HYDROX/AL HYDROX/SIMETH 30 ML UNIT-DOSE CUP PO PRN (13:22)
[2017-03-21] MEDS ORDERED: MENTHOL/PHENOL 1 EACH UD MM PRN (13:22)
[2017-03-21] MEDS ORDERED: diazePAM 5 MG TABLET PO ONE (13:35)
[2017-03-21] MEDS ORDERED: METHADONE HCL 10 MG TABLET (FOR DETOX USE ONLY) PO ONE ×2 (13:36→23:00)
[2017-03-21] MEDS: diazePAM 5 MG TABLET PO SCH ×2 (14:12→22:36)
[2017-03-21] MEDS: SULFAMETHOXAZOLE/TRIMETHOPRIM 800MG/160MG D.S. TABLET PO SCH (14:46)
[2017-03-21] MEDS: CYCLOBENZAPRINE HCL 10 MG TABLET (FP) PO PRN ×2 (14:47→22:39)
[2017-03-21 17:00] LABS: URINE APPEARANCE CLEAR; URINE BILIRUBIN NEGATIVE (NEGATIVE); URINE BLOOD NEGATIVE (NEGATIVE); URINE COLOR YELLOW; URINE GLUCOSE (UA) NEGATIVE (NEGATIVE); URINE KETONE TRACE (NEGATIVE); URINE LEUK ESTERASE NEGATIVE (NEGATIVE); URINE NITRITE NEGATIVE (NEGATIVE); URINE PROTEIN NEGATIVE (NEGATIVE); URINE UROBILINOGEN NEGATIVE E.U./dl (0.2-1.0)
[2017-03-21] MEDS: BACITRACIN 0.9 GM PACKET TP SCH (22:36)
[2017-03-21] MEDS: diphenhydrAMINE HCL 50 MG CAPSULE PO PRN (22:37)
[2017-03-21] MEDS: THIAMINE HCL 100 MG TABLET (FP) PO SCH (22:44)
[2017-03-22] MEDS: diazePAM 5 MG TABLET PO SCH ×3 (05:13→22:44)
[2017-03-22] MEDS: CYCLOBENZAPRINE HCL 10 MG TABLET (FP) PO PRN ×2 (05:13→17:24)
[2017-03-22] MEDS ORDERED: METHADONE HCL 10 MG TABLET (FOR DETOX USE ONLY) PO SCH (10:00)
[2017-03-22] MEDS: BACITRACIN 0.9 GM PACKET TP SCH ×2 (10:46→22:43)
[2017-03-22] MEDS: NICOTINE 21 MG/24 HOURS TOPICAL PATCH TD SCH (10:46)
[2017-03-22] MEDS: SULFAMETHOXAZOLE/TRIMETHOPRIM 800MG/160MG D.S. TABLET PO SCH (10:46)
[2017-03-22] MEDS: PRENATAL VITAMINS W/ FOLIC ACID TABLET (FP) PO SCH (10:46)
[2017-03-22] MEDS: diazePAM 5 MG TABLET PO PRN ×2 (10:48→17:24)
--- NOTE | 2017-03-22 11:25 | EKG ---
Test Reason : Blood Pressure : / mmHG Vent. Rate : 070 BPM Atrial Rate : 070 BPM P-R Int : 136 ms QRS Dur : 102 ms QT Int : 384 ms P-R-T Axes : 080 081 067 degrees QTc Int : 414 ms NORMAL SINUS RHYTHM POSSIBLE LEFT ATRIAL ENLARGEMENT LEFT VENTRICULAR HYPERTROPHY EARLY REPOLARIZATION ABNORMAL ECG WHEN COMPARED WITH ECG OF 14-MAR-2017 13:43, NO SIGNIFICANT CHANGE WAS FOUND Confirmed by SHAYY CARR, ARABELLA ([id number]) on 03/22/2017 11:25:20 AM Referred By: Trevon Brock Confirmed By:ARABELLA LUCAS MD
--- NOTE | 2017-03-22 16:20 | PN ---
S CIWA - CIWA Score Nausea/Vomitin-Int. Nausea w/Dry Heave Muscle Tremors: 4-Moderate,w/Arms Extend Anxiety: 0-No Anxiety, at Ease Agitation: 2 Paroxysmal Sweats: 1-Minimal Palms Moist Orientation: 0-Oriented Tacttile Disturbances: 1-Very Mild Itch/Numbness Auditory Disturbances: 2-Mild Harshness/Frighten Visual Disturbances: 2-Mild Sensitivity Headache: 0-None Present CIWA-Ar Total Score: 16 BHS COWS - Scale Resting Pulse: 1= [place] 81-100 Sweatin= Chills/Flushing Restless Observation: 1= Difficult to Sit Still Pupil Size: 0= Normal to Room Light Bone or Joint Aches: 2= Severe Diffuse Aches Runny Nose/ Eye Tearin= Nasal Congestion GI Upset > 30mins: 2= Nausea/Diarrhea Tremor Observation of Outstretched Hands: 2= Slight Tremor Visible Yawning Observation: 1= 1-2x During Session Anxiety or Irritability: 2=Irritable/Anxious Goose Flesh Skin: 0=Smooth Skin COWS Score: 13 S Progress Note (SOAP) Subjective: Nausea, Interrupted sleep, Tremors, Body aches. Objective: PT. A & O X 3, OBSERVED AMBULATING ON UNIT. 03/22/17 16:18 Vital Signs Temperature 97.8 F 03/22/17 13:52 Pulse Rate 92 H 03/22/17 13:52 Respiratory Rate 18 03/22/17 13:52 Blood Pressure 100/74 03/22/17 13:52 O2 Sat by Pulse Oximetry (%) Laboratory Last Values Urine Color Yellow 03/21/17 14:00 Urine Appearance Clear 03/21/17 14:00 Urine pH 5.0 (5.0-8.0) D 03/21/17 14:00 Ur Specific [place] 1.027 (1.001-1.035) 03/21/17 14:00 Urine Protein Negative (NEGATIVE) 03/21/17 14:00 Urine Glucose (UA) Negative (NEGATIVE) 03/21/17 14:00 Urine Ketones Trace (NEGATIVE) H 03/21/17 14:00 Urine Blood Negative (NEGATIVE) 03/21/17 14:00 Urine Nitrite Negative (NEGATIVE) 03/21/17 14:00 Urine Bilirubin Negative (NEGATIVE) 03/21/17 14:00 Urine Urobilinogen Negative E.U./dl (0.2-1.0) 03/21/17 14:00 Ur Leukocyte Esterase Negative (NEGATIVE) 03/21/17 14:00 LABS NOTED. Assessment: 03/22/17 16:19 WITHDRAWAL SYMPTOMS. Plan: CONTINUE DETOX. ADVISED PATIENT TO FOLLOW-UP WITH CHAIR SPRINGER / REHAB MEDICAL PROVIDER AFTER DISCHARGE FROM DETOX FOR GENERAL MEDICAL ASSESSMENT AND FOR ABNORMAL ADMISSION LAB VALUES.
[2017-03-22] MEDS: THIAMINE HCL 100 MG TABLET (FP) PO SCH (22:44)
[2017-03-22] MEDS: diphenhydrAMINE HCL 50 MG CAPSULE PO PRN (22:44)
[2017-03-23] MEDS: CYCLOBENZAPRINE HCL 10 MG TABLET (FP) PO PRN ×2 (05:16→22:45)
[2017-03-23] MEDS: diazePAM 5 MG TABLET PO PRN ×2 (05:16→17:03)
[2017-03-23] MEDS: diazePAM 5 MG TABLET PO SCH ×2 (10:33→22:43)
[2017-03-23] MEDS: SULFAMETHOXAZOLE/TRIMETHOPRIM 800MG/160MG D.S. TABLET PO SCH (10:33)
[2017-03-23] MEDS: BACITRACIN 0.9 GM PACKET TP SCH ×2 (10:33→22:44)
[2017-03-23] MEDS: PRENATAL VITAMINS W/ FOLIC ACID TABLET (FP) PO SCH (10:34)
[2017-03-23] MEDS: METHADONE HCL 5 MG TABLET (FOR DETOX USE ONLY) PO SCH (10:34)
[2017-03-23] MEDS: NICOTINE 21 MG/24 HOURS TOPICAL PATCH TD SCH (10:34)
--- NOTE | 2017-03-23 15:44 | PN ---
[facility] CIWA - CIWA Score Nausea/Vomitin Muscle Tremors: 4-Moderate,w/Arms Extend Anxiety: 4-Mod. Anxious/Guarded Agitation: 4-Moderately Restless Paroxysmal Sweats: No Perspiration Orientation: 0-Oriented Tacttile Disturbances: 1-Very Mild Itch/Numbness Auditory Disturbances: 0-None Visual Disturbances: 0-None Headache: 2-Mild CIWA-Ar Total Score: 18 BHS COWS - Scale Resting Pulse: 1= [place] 81-100 Sweatin= Chills/Flushing Restless Observation: 3= Extraneous Movement Pupil Size: 0= Normal to Room Light Bone or Joint Aches: 2= Severe Diffuse Aches Runny Nose/ Eye Tearin= Runny Nose/Eyes GI Upset > 30mins: 1= Stomach Cramp Tremor Observation of Outstretched Hands: 2= Slight Tremor Visible Yawning Observation: 1= 1-2x During Session Anxiety or Irritability: 2=Irritable/Anxious Goose Flesh Skin: 0=Smooth Skin COWS Score: 15 BHS Progress Note (SOAP) Subjective: Sweating, nausea, tremor, chills, interrupted sleep Objective: 03/23/17 15:43 Last Vital Signs Temp Pulse Resp BP Pulse Ox 97 F L 98 H 20 104/69 03/23/17 13:20 03/23/17 13:20 03/23/17 13:20 03/23/17 13:20 Laboratory Tests 03/21/17 14:00 Urine Color Yellow Urine Appearance Clear Urine pH 5.0 D Ur Specific [place] 1.027 Urine Protein Negative Urine Glucose (UA) Negative Urine Ketones Trace H Urine Blood Negative Urine Nitrite Negative Urine Bilirubin Negative Urine Urobilinogen Negative Ur Leukocyte Esterase Negative Labs noted Assessment: 03/23/17 15:44 Withdrawal symptoms Plan: Continue detox
[2017-03-23] MEDS: THIAMINE HCL 100 MG TABLET (FP) PO SCH (22:43)
[2017-03-23] MEDS: diphenhydrAMINE HCL 50 MG CAPSULE PO PRN (22:44)
[2017-03-24] MEDS: diazePAM 5 MG TABLET PO PRN ×2 (05:32→12:10)
[2017-03-24] MEDS: CYCLOBENZAPRINE HCL 10 MG TABLET (FP) PO PRN ×2 (05:32→22:40)
[2017-03-24] MEDS: BACITRACIN 0.9 GM PACKET TP SCH ×2 (10:28→22:45)
[2017-03-24] MEDS: SULFAMETHOXAZOLE/TRIMETHOPRIM 800MG/160MG D.S. TABLET PO SCH (10:29)
[2017-03-24] MEDS: diazePAM 5 MG TABLET PO SCH ×2 (10:29→22:40)
[2017-03-24] MEDS: NICOTINE 21 MG/24 HOURS TOPICAL PATCH TD SCH (10:29)
[2017-03-24] MEDS: PRENATAL VITAMINS W/ FOLIC ACID TABLET (FP) PO SCH (10:29)
[2017-03-24] MEDS: METHADONE HCL 5 MG TABLET (FOR DETOX USE ONLY) PO SCH (10:29)
--- NOTE | 2017-03-24 12:23 | PN ---
BHS Progress Note (SOAP) Subjective: Sweating,interrupted sleep,restless. Objective: 03/24/17 12:22 Vital Signs - 8 hr 03/24/17 03/24/17 06:49 09:26 Temperature 95.8 F L 96.9 F L Pulse Rate 77 78 Respiratory 18 20 Rate Blood Pressure 104/69 115/69 Laboratory Tests 03/21/17 14:00 Urine Color Yellow Urine Appearance Clear Urine pH 5.0 D Ur Specific [place] 1.027 Urine Protein Negative Urine Glucose (UA) Negative Urine Ketones Trace H Urine Blood Negative Urine Nitrite Negative Urine Bilirubin Negative Urine Urobilinogen Negative Ur Leukocyte Esterase Negative Assessment: 03/24/17 12:23 Withdrawal sx Plan: Continue detox
[2017-03-24] MEDS: hydrOXYzine PAMOATE 50 MG CAPSULE (FP) PO PRN (18:25)
[2017-03-24] MEDS: diphenhydrAMINE HCL 50 MG CAPSULE PO PRN (22:40)
[2017-03-24] MEDS: THIAMINE HCL 100 MG TABLET (FP) PO SCH (22:40)
[2017-03-25] MEDS: hydrOXYzine PAMOATE 50 MG CAPSULE (FP) PO PRN ×3 (05:21→14:51)
[2017-03-25 09:47] VITALS: BP 112/70; PULSE 92; TEMP 96.8
[2017-03-25] MEDS ORDERED: diazePAM 5 MG TABLET PO SCH (10:00)
[2017-03-25] MEDS ORDERED: METHADONE HCL 10 MG TABLET (FOR DETOX USE ONLY) PO SCH (10:00)
[2017-03-25] MEDS: PRENATAL VITAMINS W/ FOLIC ACID TABLET (FP) PO SCH (10:26)
[2017-03-25] MEDS: NICOTINE 21 MG/24 HOURS TOPICAL PATCH TD SCH (10:26)
[2017-03-25] MEDS: SULFAMETHOXAZOLE/TRIMETHOPRIM 800MG/160MG D.S. TABLET PO SCH (10:26)
[2017-03-25] MEDS: BACITRACIN 0.9 GM PACKET TP SCH (10:27)
[2017-03-25] MEDS: CYCLOBENZAPRINE HCL 10 MG TABLET (FP) PO PRN (10:28)
--- NOTE | 2017-03-25 10:49 | PN ---
BHS Progress Note (SOAP) Subjective: ANXIETY,SWEATS,INTERMITTENT SLEEP-BENADRYL 50 MG INEFFECTIVE. Objective: 03/25/17 10:48 Vital Signs Temperature 96.8 F L 03/25/17 09:47 Pulse Rate 92 H 03/25/17 09:47 Respiratory Rate 18 03/25/17 09:47 Blood Pressure 112/70 03/25/17 09:47 O2 Sat by Pulse Oximetry (%) Assessment: 03/25/17 10:48 WITHDRAWAL SX Plan: CONTINUE DETOX INCREASE BENADRYL 100 MG PO HS FOR INSOMNIA PER PT'S REQUEST
--- NOTE | 2017-03-25 13:05 | DS ---
[facility] Detox Discharge Summary Admission Date: 03/21/17 Discharge Date: 03/25/17 - History Present History: Alcohol Dependence, Opioid Dependence, Sedative Dependence Additional Comments: PT READY TO CONTINUE WITH AFTERCARE RECOMMENDATION. PT REFERRED TO REHAB TODAY AND WILLING TO GO. Pertinent Past History: HX CELLULITIS OF HAND - Physical Exam Results Vital Signs: Vital Signs Temperature 96.8 F L 03/25/17 09:47 Pulse Rate 92 H 03/25/17 09:47 Respiratory Rate 18 03/25/17 09:47 Blood Pressure 112/70 03/25/17 09:47 O2 Sat by Pulse Oximetry (%) Pertinent Admission Physical Exam Findings: WITHDRAWAL SX - Treatment Hospital Course: Detox Protocol Followed, Detoxed Safely, Responded well, Discharged Condition Good, Rehab Referral Accepted Patient has Accepted a Rehab Referral to: [address] - Medication Discharge Medications: Ambulatory Orders NK [No Known Home Medication] 01/21/17 - Diagnosis (1) Alcohol dependence with uncomplicated withdrawal Current Visit: Yes Status: Chronic (2) Opioid dependence with withdrawal Current Visit: Yes Status: Chronic (3) Sedative, hypnotic or anxiolytic dependence with withdrawal, uncomplicated Current Visit: Yes Status: Chronic - AMA Did Patient Leave Against Medical Advice: No
[2017-03-25] MEDS ORDERED: diphenhydrAMINE HCL 50 MG CAPSULE PO PRN (22:00)
[2017-03-26] MEDS ORDERED: METHADONE HCL 5 MG TABLET (FOR DETOX USE ONLY) PO SCH (06:00)
== END 2017-03-25 18:00 | disposition other institution (70) | DRG 773 ==
LOC: YASAS 08:34 → Y3N 11:58
PROVIDERS: ADMIT Internal Medicine; ATTEND Internal Medicine
PROC: HZ2ZZZZ Detoxification Services for Substance Abuse Treatment (ICD-10-PCS; principal; 2017-03-25)
DX: F11.23 Opioid dependence with withdrawal (principal); F13.230 Sedative, hypnotic or anxiolytic dependence with withdrawal, uncomplicated; F14.20 Cocaine dependence, uncomplicated; F17.210 Nicotine dependence, cigarettes, uncomplicated; R76.11 Nonspecific reaction to tuberculin skin test without active tuberculosis; L03.114 Cellulitis of left upper limb
CPT/HCPCS: 81003; 93005; 93010

== ENCOUNTER 2017-08-09 08:56 | Inpatient (IN) | payer OTHER ==
[2017-08-09 09:15] VITALS: BMI 18.1
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
[2017-08-09] MEDS ORDERED: MAGNESIUM HYDROX 2400MG/30ML ORAL SUSPENSION 30 ML CUP PO PRN (09:22)
[2017-08-09] MEDS ORDERED: IBUPROFEN 400 MG TABLET (FP) PO PRN (09:22)
[2017-08-09] MEDS ORDERED: hydrOXYzine PAMOATE 50 MG CAPSULE (FP) PO PRN (09:22)
[2017-08-09] MEDS ORDERED: MAGNESIUM CITRATE 300 ML BOTTLE PO PRN (09:22)
[2017-08-09] MEDS ORDERED: LOPERAMIDE HCL 2 MG CAPSULE PO PRN (09:22)
[2017-08-09] MEDS ORDERED: MAG HYDROX/AL HYDROX/SIMETH 30 ML UNIT-DOSE CUP PO PRN (09:22)
[2017-08-09] MEDS ORDERED: guaiFENesin/D-METHORPHAN HB 10 ML UNIT-DOSE CUPS PO PRN (09:22)
[2017-08-09] MEDS ORDERED: P-EPHED 60MG/TRIPROLIDI 2.5MG TABLET PO PRN (09:22)
[2017-08-09] MEDS ORDERED: ACETAMINOPHEN 325 MG TABLET (FP) PO PRN (09:22)
[2017-08-09] MEDS ORDERED: MENTHOL/PHENOL 1 EACH UD MM PRN (09:22)
[2017-08-09] MEDS ORDERED: METHADONE HCL 10 MG TABLET (FOR DETOX USE ONLY) PO ONE ×2 (12:00→23:00)
[2017-08-09] MEDS ORDERED: chlordiazePOXIDE HCL 25 MG CAPSULE PO ONE (12:00)
[2017-08-09] MEDS: BACITRACIN 15 GM TUBE TOPICAL OINTMENT TP SCH (12:25)
[2017-08-09] MEDS: CEPHALEXIN MONOHYDRATE 500 MG CAPSULE (UD) PO SCH ×3 (12:25→23:20)
[2017-08-09] MEDS: PRENATAL VITAMINS W/ FOLIC ACID TABLET (FP) PO SCH (12:27)
[2017-08-09] MEDS: chlordiazePOXIDE HCL 25 MG CAPSULE PO SCH ×2 (17:29→22:23)
[2017-08-09 17:41] LABS: URINE APPEARANCE SLCLOUDY; URINE BILIRUBIN NEGATIVE (NEGATIVE); URINE BLOOD NEGATIVE (NEGATIVE); URINE COLOR AMBER; URINE GLUCOSE (UA) NEGATIVE (NEGATIVE); URINE KETONE NEGATIVE (NEGATIVE); URINE LEUK ESTERASE NEGATIVE (NEGATIVE); URINE NITRITE NEGATIVE (NEGATIVE); URINE PROTEIN NEGATIVE (NEGATIVE)
[2017-08-09] MEDS: THIAMINE HCL 100 MG TABLET (FP) PO SCH (22:23)
[2017-08-09] MEDS: diphenhydrAMINE HCL 50 MG CAPSULE PO PRN (22:23)
[2017-08-10] MEDS: chlordiazePOXIDE HCL 25 MG CAPSULE PO SCH ×4 (05:53→22:14)
[2017-08-10] MEDS: CEPHALEXIN MONOHYDRATE 500 MG CAPSULE (UD) PO SCH ×4 (05:53→23:30)
[2017-08-10] MEDS ORDERED: METHADONE HCL 10 MG TABLET (FOR DETOX USE ONLY) PO SCH (10:00)
[2017-08-10] MEDS: PRENATAL VITAMINS W/ FOLIC ACID TABLET (FP) PO SCH (10:21)
[2017-08-10] MEDS: CYCLOBENZAPRINE HCL 10 MG TABLET (FP) PO PRN ×2 (10:22→22:14)
[2017-08-10] MEDS: BACITRACIN 15 GM TUBE TOPICAL OINTMENT TP SCH (10:24)
[2017-08-10 10:36] LABS: MCH 31.8 pg (25.7-33.7); MCHC 33.6 g/dl (32.0-35.9); MEAN CELL VOLUME 94.5 fl (80-96); MEAN PLT VOLUME 9.4 fl (7.5-11.1); PLATELET COUNT 177 K/MM3 (134-434); RDW 12.5 % (11.9-15.9); WHITE BLOOD COUNT 5.5 K/mm3 (4.0-10.0)
[2017-08-10 10:46] LABS: ANION GAP 5 (8-16); CALCIUM 8.4 mg/dL (8.5-10.1); CO2 30 mmol/L (21-32); CREATININE 0.9 mg/dL (0.7-1.3); GLUCOSE,RANDOM 85 mg/dL (74-106); SGOT/AST 9 U/L (15-37); SGPT/ALT 15 U/L (12-78)
[2017-08-10 10:48] LABS: ALK PHOS 64 U/L (45-117); BILIRUBIN,TOTAL 0.3 mg/dL (0.2-1.0); TOT PROT 6.3 g/dl (6.4-8.2)
[2017-08-10 11:10] LABS: HIV 1 & 2 AB NEGATIVE; HIV 1 AGp24 NEGATIVE
--- NOTE | 2017-08-10 17:27 | PN ---
S CIWA - CIWA Score Nausea/Vomitin Muscle Tremors: 4-Moderate,w/Arms Extend Anxiety: 4-Mod. Anxious/Guarded Agitation: 4-Moderately Restless Paroxysmal Sweats: 3 Orientation: 0-Oriented Tacttile Disturbances: 1-Very Mild Itch/Numbness Auditory Disturbances: 0-None Visual Disturbances: 0-None Headache: 1-Very Mild CIWA-Ar Total Score: 20 S COWS - Scale Resting Pulse: 1= [place] 81-100 Sweatin=Flushed/Facial Moisture Restless Observation: 3= Extraneous Movement Pupil Size: 0= Normal to Room Light Bone or Joint Aches: 2= Severe Diffuse Aches Runny Nose/ Eye Tearin= Runny Nose/Eyes GI Upset > 30mins: 2= Nausea/Diarrhea Tremor Observation of Outstretched Hands: 2= Slight Tremor Visible Yawning Observation: 0= None Anxiety or Irritability: 2=Irritable/Anxious Goose Flesh Skin: 0=Smooth Skin COWS Score: 16 S Progress Note (SOAP) Subjective: Sweating, nausea, tremor, chills, interrupted sleep Objective: 08/10/17 17:26 Last Vital Signs Temp Pulse Resp BP Pulse Ox 98.0 F 81 18 105/66 08/10/17 13:40 08/10/17 13:40 08/10/17 13:40 08/10/17 13:40 Laboratory Tests 08/09/17 08/10/17 08/10/17 17:20 07:30 07:30 WBC 5.5 RBC 4.32 Hgb 13.7 Hct 40.8 MCV 94.5 MCH 31.8 MCHC 33.6 RDW 12.5 Plt Count 177 MPV 9.4 Sodium 140 Potassium 4.0 Chloride 105 Carbon Dioxide 30 Anion Gap 5 L BUN 16 Creatinine 0.9 Creat Clearance w eGFR > 60 Random Glucose 85 Calcium 8.4 L Total Bilirubin 0.3 AST 9 L D ALT 15 D Alkaline Phosphatase 64 Total Protein 6.3 L Albumin 3.0 L D Urine Color Manda Urine Appearance Slcloudy Urine pH 5.0 Ur Specific [place] >= 1.030 H Urine Protein Negative Urine Glucose (UA) Negative Urine Ketones Negative Urine Blood Negative Urine Nitrite Negative Urine Bilirubin Negative Urine Urobilinogen 2.0 RPR Titer HIV 1&2 Antibody Screen HIV P24 Antigen 08/10/17 08/10/17 07:30 07:30 WBC RBC Hgb Hct MCV MCH MCHC RDW Plt Count MPV Sodium Potassium Chloride Carbon Dioxide Anion Gap BUN Creatinine Creat Clearance w eGFR Random Glucose Calcium Total Bilirubin AST ALT Alkaline Phosphatase Total Protein Albumin Urine Color Urine Appearance Urine pH Ur Specific [place] Urine Protein Urine Glucose (UA) Urine Ketones Urine Blood Urine Nitrite Urine Bilirubin Urine Urobilinogen RPR Titer Nonreactive HIV 1&2 Antibody Screen Negative HIV P24 Antigen Negative Labs noted Assessment: 08/10/17 17:27 Withdrawal symptoms Plan: Continue detox
[2017-08-10] MEDS: chlordiazePOXIDE HCL 25 MG CAPSULE PO PRN (19:09)
[2017-08-10] MEDS: THIAMINE HCL 100 MG TABLET (FP) PO SCH (22:14)
[2017-08-10] MEDS: diphenhydrAMINE HCL 50 MG CAPSULE PO PRN (22:14)
[2017-08-11] MEDS: CEPHALEXIN MONOHYDRATE 500 MG CAPSULE (UD) PO SCH ×4 (05:13→23:27)
[2017-08-11] MEDS: chlordiazePOXIDE HCL 25 MG CAPSULE PO SCH ×2 (05:13→10:20)
[2017-08-11] MEDS ORDERED: BACITRACIN 0.9 GM PACKET TP SCH (08:59)
[2017-08-11] MEDS: METHADONE HCL 5 MG TABLET (FOR DETOX USE ONLY) PO SCH (10:20)
[2017-08-11] MEDS: PRENATAL VITAMINS W/ FOLIC ACID TABLET (FP) PO SCH (10:20)
[2017-08-11] MEDS: CYCLOBENZAPRINE HCL 10 MG TABLET (FP) PO PRN ×2 (10:21→22:04)
[2017-08-11] MEDS: BACITRACIN 0.9 GM PACKET TP SCH (10:21)
--- NOTE | 2017-08-11 12:26 | PN ---
[facility] CIWA - CIWA Score Nausea/Vomitin-No Nausea/No Vomiting Muscle Tremors: 4-Moderate,w/Arms Extend Anxiety: 3 Agitation: 1-Slight > Activity Paroxysmal Sweats: 3 Orientation: 0-Oriented Tacttile Disturbances: 0-None Auditory Disturbances: 2-Mild Harshness/Frighten Visual Disturbances: 2-Mild Sensitivity Headache: 0-None Present CIWA-Ar Total Score: 15 S COWS - Scale Resting Pulse: 0= [place] 80 or Below Sweatin= Chills/Flushing Restless Observation: 1= Difficult to Sit Still Pupil Size: 0= Normal to Room Light Bone or Joint Aches: 2= Severe Diffuse Aches Runny Nose/ Eye Tearin= Runny Nose/Eyes GI Upset > 30mins: 1= Stomach Cramp Tremor Observation of Outstretched Hands: 2= Slight Tremor Visible Yawning Observation: 1= 1-2x During Session Anxiety or Irritability: 2=Irritable/Anxious Goose Flesh Skin: 0=Smooth Skin COWS Score: 12 [facility] Progress Note (SOAP) Subjective: Tremors, Interrupted Sleep, Fatigue, Body Aches, Sweating. Objective: PT. A & O X 3, OBSERVED AMBULATING ON UNIT. NO ACUTE DISTRESS. 08/11/17 12:25 Vital Signs Temperature 97.8 F 08/11/17 09:36 Pulse Rate 65 08/11/17 09:36 Respiratory Rate 18 08/11/17 09:36 Blood Pressure 119/79 08/11/17 09:36 O2 Sat by Pulse Oximetry (%) Laboratory Tests 08/09/17 08/10/17 08/10/17 17:20 07:30 07:30 WBC 5.5 RBC 4.32 Hgb 13.7 Hct 40.8 MCV 94.5 MCH 31.8 MCHC 33.6 RDW 12.5 Plt Count 177 MPV 9.4 Sodium 140 Potassium 4.0 Chloride 105 Carbon Dioxide 30 Anion Gap 5 L BUN 16 Creatinine 0.9 Creat Clearance w eGFR > 60 Random Glucose 85 Calcium 8.4 L Total Bilirubin 0.3 AST 9 L D ALT 15 D Alkaline Phosphatase 64 Total Protein 6.3 L Albumin 3.0 L D Urine Color Manda Urine Appearance Slcloudy Urine pH 5.0 Ur Specific [place] >= 1.030 H Urine Protein Negative Urine Glucose (UA) Negative Urine Ketones Negative Urine Blood Negative Urine Nitrite Negative Urine Bilirubin Negative Urine Urobilinogen 2.0 RPR Titer HIV 1&2 Antibody Screen HIV P24 Antigen 08/10/17 08/10/17 07:30 07:30 WBC RBC Hgb Hct MCV MCH MCHC RDW Plt Count MPV Sodium Potassium Chloride Carbon Dioxide Anion Gap BUN Creatinine Creat Clearance w eGFR Random Glucose Calcium Total Bilirubin AST ALT Alkaline Phosphatase Total Protein Albumin Urine Color Urine Appearance Urine pH Ur Specific [place] Urine Protein Urine Glucose (UA) Urine Ketones Urine Blood Urine Nitrite Urine Bilirubin Urine Urobilinogen RPR Titer Nonreactive HIV 1&2 Antibody Screen Negative HIV P24 Antigen Negative LABS NOTED. Assessment: 08/11/17 12:25 WITHDRAWAL SYMPTOMS. Plan: CONTINUE DETOX.
[2017-08-11] MEDS: chlordiazePOXIDE HCL 25 MG CAPSULE PO PRN (12:47)
--- NOTE | 2017-08-11 17:02 | EKG ---
Test Reason : Blood Pressure : / mmHG Vent. Rate : 061 BPM Atrial Rate : 061 BPM P-R Int : 132 ms QRS Dur : 100 ms QT Int : 418 ms P-R-T Axes : 077 077 064 degrees QTc Int : 420 ms NORMAL SINUS RHYTHM POSSIBLE LEFT ATRIAL ENLARGEMENT LEFT VENTRICULAR HYPERTROPHY EARLY REPOLARIZATION ABNORMAL ECG WHEN COMPARED WITH ECG OF 21-MAR-2017 13:16, NO SIGNIFICANT CHANGE WAS FOUND Confirmed by MANN WOLF MD ([id number]) on 08/11/2017 5:01:52 PM Referred By: Confirmed By:MANN WOLF MD
[2017-08-11] MEDS: chlordiazePOXIDE 5 MG CAPSULE PO SCH ×2 (17:22→22:03)
[2017-08-11] MEDS: THIAMINE HCL 100 MG TABLET (FP) PO SCH (22:03)
[2017-08-11] MEDS: diphenhydrAMINE HCL 50 MG CAPSULE PO PRN (22:04)
[2017-08-12] MEDS: diphenhydrAMINE HCL 50 MG CAPSULE PO PRN ×2 (00:28→22:11)
[2017-08-12] MEDS: chlordiazePOXIDE HCL 25 MG CAPSULE PO PRN ×2 (00:30→08:49)
[2017-08-12] MEDS: chlordiazePOXIDE 5 MG CAPSULE PO SCH ×2 (05:37→10:34)
[2017-08-12] MEDS: CEPHALEXIN MONOHYDRATE 500 MG CAPSULE (UD) PO SCH ×4 (05:37→23:29)
[2017-08-12] MEDS: METHADONE HCL 5 MG TABLET (FOR DETOX USE ONLY) PO SCH (10:34)
[2017-08-12] MEDS: BACITRACIN 0.9 GM PACKET TP SCH (10:35)
[2017-08-12] MEDS: PRENATAL VITAMINS W/ FOLIC ACID TABLET (FP) PO SCH (10:35)
--- NOTE | 2017-08-12 13:18 | PN ---
BHS Progress Note (SOAP) Subjective: Anxious, Fatigue. Objective: PT. A & O X 3. NO ACUTE DISTRESS. 08/12/17 13:15 Vital Signs Temperature 97.3 F L 08/12/17 09:08 Pulse Rate 68 08/12/17 09:08 Respiratory Rate 18 08/12/17 09:08 Blood Pressure 125/90 08/12/17 09:08 O2 Sat by Pulse Oximetry (%) Laboratory Tests 08/09/17 08/10/17 08/10/17 17:20 07:30 07:30 WBC 5.5 RBC 4.32 Hgb 13.7 Hct 40.8 MCV 94.5 MCH 31.8 MCHC 33.6 RDW 12.5 Plt Count 177 MPV 9.4 Sodium 140 Potassium 4.0 Chloride 105 Carbon Dioxide 30 Anion Gap 5 L BUN 16 Creatinine 0.9 Creat Clearance w eGFR > 60 Random Glucose 85 Calcium 8.4 L Total Bilirubin 0.3 AST 9 L D ALT 15 D Alkaline Phosphatase 64 Total Protein 6.3 L Albumin 3.0 L D Urine Color Manda Urine Appearance Slcloudy Urine pH 5.0 Ur Specific [place] >= 1.030 H Urine Protein Negative Urine Glucose (UA) Negative Urine Ketones Negative Urine Blood Negative Urine Nitrite Negative Urine Bilirubin Negative Urine Urobilinogen 2.0 RPR Titer HIV 1&2 Antibody Screen HIV P24 Antigen 08/10/17 08/10/17 07:30 07:30 WBC RBC Hgb Hct MCV MCH MCHC RDW Plt Count MPV Sodium Potassium Chloride Carbon Dioxide Anion Gap BUN Creatinine Creat Clearance w eGFR Random Glucose Calcium Total Bilirubin AST ALT Alkaline Phosphatase Total Protein Albumin Urine Color Urine Appearance Urine pH Ur Specific [place] Urine Protein Urine Glucose (UA) Urine Ketones Urine Blood Urine Nitrite Urine Bilirubin Urine Urobilinogen RPR Titer Nonreactive HIV 1&2 Antibody Screen Negative HIV P24 Antigen Negative LABS NOTED. Assessment: 08/12/17 13:16 WITHDRAWAL SYMPTOMS. Plan: CONTINUE DETOX. INCREASE DAILY PO FLUID INTAKE.
[2017-08-12] MEDS: chlordiazePOXIDE HCL 10 MG CAPSULE PO SCH ×2 (16:58→22:10)
[2017-08-12] MEDS: THIAMINE HCL 100 MG TABLET (FP) PO SCH (22:10)
[2017-08-12] MEDS: CYCLOBENZAPRINE HCL 10 MG TABLET (FP) PO PRN (22:10)
[2017-08-13] MEDS: diphenhydrAMINE HCL 50 MG CAPSULE PO PRN (00:15)
[2017-08-13] MEDS: CEPHALEXIN MONOHYDRATE 500 MG CAPSULE (UD) PO SCH ×2 (05:18→12:40)
[2017-08-13] MEDS: chlordiazePOXIDE HCL 10 MG CAPSULE PO SCH ×2 (05:18→10:30)
[2017-08-13 09:32] VITALS: TEMP 97.6
[2017-08-13] MEDS ORDERED: METHADONE HCL 10 MG TABLET (FOR DETOX USE ONLY) PO SCH (10:00)
[2017-08-13] MEDS: BACITRACIN 0.9 GM PACKET TP SCH (10:30)
[2017-08-13] MEDS: PRENATAL VITAMINS W/ FOLIC ACID TABLET (FP) PO SCH (10:30)
[2017-08-13] MEDS: CYCLOBENZAPRINE HCL 10 MG TABLET (FP) PO PRN (13:41)
[2017-08-13 14:10] VITALS: BP 110/71; PULSE 97
--- NOTE | 2017-08-13 16:32 | DS ---
[facility] Detox Discharge Summary Admission Date: 08/09/17 Discharge Date: 08/13/17 - History Present History: Opioid Dependence Additional Comments: PATIENT DENYING ANY CURRENT DETOX SYMPTOMS AND REPORTING THAT HE FEELS WELL IN GENERAL. AT PATIENT'S REQUEST, PATIENT DISCHARGED TODAY TO HELP FACILITATE TRANSP[facility] FOR AFTERCARE. PATIENT WAS DISCHARGED FROM DETOX UNIT IN STABLE MEDICAL CONDITION. Pertinent Past History: Abscess, Nicotine Dependence, History of Positive PPD. - Physical Exam Results Vital Signs: Vital Signs Temperature 97.6 F 08/13/17 14:09 Pulse Rate 97 H 08/13/17 14:09 Respiratory Rate 20 08/13/17 14:09 Blood Pressure 110/71 08/13/17 14:09 O2 Sat by Pulse Oximetry (%) Pertinent Admission Physical Exam Findings: WITHDRAWAL SYMPTOMS. Laboratory Tests 08/09/17 08/10/17 08/10/17 17:20 07:30 07:30 WBC 5.5 RBC 4.32 Hgb 13.7 Hct 40.8 MCV 94.5 MCH 31.8 MCHC 33.6 RDW 12.5 Plt Count 177 MPV 9.4 Sodium 140 Potassium 4.0 Chloride 105 Carbon Dioxide 30 Anion Gap 5 L BUN 16 Creatinine 0.9 Creat Clearance w eGFR > 60 Random Glucose 85 Calcium 8.4 L Total Bilirubin 0.3 AST 9 L D ALT 15 D Alkaline Phosphatase 64 Total Protein 6.3 L Albumin 3.0 L D Urine Color Manda Urine Appearance Slcloudy Urine pH 5.0 Ur Specific [place] >= 1.030 H Urine Protein Negative Urine Glucose (UA) Negative Urine Ketones Negative Urine Blood Negative Urine Nitrite Negative Urine Bilirubin Negative Urine Urobilinogen 2.0 RPR Titer HIV 1&2 Antibody Screen HIV P24 Antigen 08/10/17 08/10/17 07:30 07:30 WBC RBC Hgb Hct MCV MCH MCHC RDW Plt Count MPV Sodium Potassium Chloride Carbon Dioxide Anion Gap BUN Creatinine Creat Clearance w eGFR Random Glucose Calcium Total Bilirubin AST ALT Alkaline Phosphatase Total Protein Albumin Urine Color Urine Appearance Urine pH Ur Specific [place] Urine Protein Urine Glucose (UA) Urine Ketones Urine Blood Urine Nitrite Urine Bilirubin Urine Urobilinogen RPR Titer Nonreactive HIV 1&2 Antibody Screen Negative HIV P24 Antigen Negative LABS NOTED. - Treatment Hospital Course: Detox Protocol Followed, Detoxed Safely, Responded well, Discharged Condition Good, Rehab Referral Accepted Patient has Accepted a Rehab [facility] to: [facility] ([place]) - Medication Discharge Medications: Ambulatory Orders Cephalexin Monohydrate [Keflex -] 500 mg PO Q6H #20 capsule 08/13/17 - Diagnosis (1) Abscess Status: Acute (2) Alcohol dependence with uncomplicated withdrawal Status: Acute (3) Nicotine dependence Status: Chronic Qualifiers: Nicotine product type: cigarettes Substance use status: uncomplicated Qualified Code(s): F17.210 - Nicotine dependence, cigarettes, uncomplicated (4) Opioid dependence with withdrawal Status: Acute (5) Positive PPD Status: Chronic - AMA Did Patient Leave Against Medical Advice: No
[2017-08-14] MEDS ORDERED: METHADONE HCL 5 MG TABLET (FOR DETOX USE ONLY) PO SCH (06:00)
== END 2017-08-13 15:09 | disposition home or self-care (01) | DRG 773 ==
LOC: YASAS 08:56 → Y3N 09:59
PROVIDERS: ADMIT Internal Medicine; ATTEND Internal Medicine
PROC: HZ2ZZZZ Detoxification Services for Substance Abuse Treatment (ICD-10-PCS; principal; 2017-08-09)
DX: F11.23 Opioid dependence with withdrawal (principal); F10.230 Alcohol dependence with withdrawal, uncomplicated; F17.210 Nicotine dependence, cigarettes, uncomplicated; R76.11 Nonspecific reaction to tuberculin skin test without active tuberculosis; L02.414 Cutaneous abscess of left upper limb; L02.413 Cutaneous abscess of right upper limb
CPT/HCPCS: 36415; 80053; 81003; 85027; 86593; 87389; 93005; 93010

== ENCOUNTER 2017-09-17 17:22 | Inpatient (IN) | payer OTHER ==
[2017-09-17 17:43] VITALS: BMI 19.3
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
[2017-09-17] MEDS ORDERED: ACETAMINOPHEN 325 MG TABLET (FP) PO PRN (21:23)
[2017-09-17] MEDS ORDERED: IBUPROFEN 400 MG TABLET (FP) PO PRN (21:23)
[2017-09-17] MEDS ORDERED: NICOTINE POLACRILEX 2 MG GUM BUC PRN (21:23)
[2017-09-17] MEDS ORDERED: MAGNESIUM HYDROX 2400MG/30ML ORAL SUSPENSION 30 ML CUP PO PRN (21:23)
[2017-09-17] MEDS ORDERED: MAG HYDROX/AL HYDROX/SIMETH 30 ML UNIT-DOSE CUP PO PRN (21:23)
[2017-09-17] MEDS ORDERED: METHADONE HCL 10 MG TABLET (FOR DETOX USE ONLY) PO ONE ×2 (21:23→23:00)
[2017-09-17] MEDS ORDERED: MAGNESIUM CITRATE 300 ML BOTTLE PO PRN (21:23)
[2017-09-17] MEDS ORDERED: P-EPHED 60MG/TRIPROLIDI 2.5MG TABLET PO PRN (21:23)
[2017-09-17] MEDS ORDERED: LOPERAMIDE HCL 2 MG CAPSULE PO PRN (21:23)
[2017-09-17] MEDS ORDERED: guaiFENesin/D-METHORPHAN HB 10 ML UNIT-DOSE CUPS PO PRN (21:23)
[2017-09-17] MEDS ORDERED: MENTHOL/PHENOL 1 EACH UD MM PRN (21:23)
[2017-09-17] MEDS ORDERED: METHADONE HCL 10 MG TABLET (FOR DETOX USE ONLY) ONE (23:35)
[2017-09-17] MEDS: THIAMINE HCL 100 MG TABLET (FP) PO SCH (23:43)
[2017-09-17] MEDS: chlordiazePOXIDE HCL 25 MG CAPSULE PO SCH (23:44)
[2017-09-18 01:25] LABS: URINE APPEARANCE SLCLOUDY; URINE BILIRUBIN NEGATIVE (NEGATIVE); URINE BLOOD NEGATIVE (NEGATIVE); URINE COLOR DKYELLOW; URINE GLUCOSE (UA) NEGATIVE (NEGATIVE); URINE KETONE NEGATIVE (NEGATIVE); URINE NITRITE NEGATIVE (NEGATIVE); URINE PROTEIN NEGATIVE (NEGATIVE); URINE UROBILINOGEN NEGATIVE mg/dL (0.2-1.0)
[2017-09-18] MEDS: chlordiazePOXIDE HCL 25 MG CAPSULE PO SCH ×4 (07:25→23:02)
[2017-09-18 09:15] LABS: URINE LEUK ESTERASE Negative (NEGATIVE)
[2017-09-18] MEDS ORDERED: METHADONE HCL 10 MG TABLET (FOR DETOX USE ONLY) PO SCH (10:00)
[2017-09-18 10:16] LABS: MCH 31.5 pg (25.7-33.7); MCHC 33.8 g/dl (32.0-35.9); MEAN CELL VOLUME 93.3 fl (80-96); MEAN PLT VOLUME 9.1 fl (7.5-11.1); PLATELET COUNT 167 K/MM3 (134-434); RDW 12.9 % (11.9-15.9); WHITE BLOOD COUNT 6.5 K/mm3 (4.0-10.0)
[2017-09-18 10:41] LABS: ALBUMIN 2.9 g/dl (3.4-5.0); ALK PHOS 66 U/L (45-117); ANION GAP 7 (8-16); BILIRUBIN,TOTAL 0.3 mg/dL (0.2-1.0); CALCIUM 7.7 mg/dL (8.5-10.1); CO2 27 mmol/L (21-32); CREATININE 0.8 mg/dL (0.7-1.3); GLUCOSE,RANDOM 109 mg/dL (74-106); SGOT/AST 8 U/L (15-37); SGPT/ALT 16 U/L (12-78); TOT PROT 6.3 g/dl (6.4-8.2)
--- NOTE | 2017-09-18 10:44 | EKG ---
Test Reason : Blood Pressure : / mmHG Vent. Rate : 070 BPM Atrial Rate : 070 BPM P-R Int : 130 ms QRS Dur : 098 ms QT Int : 388 ms P-R-T Axes : 079 081 070 degrees QTc Int : 419 ms NORMAL SINUS RHYTHM NORMAL ECG WHEN COMPARED WITH ECG OF 09-AUG-2017 13:02, NO SIGNIFICANT CHANGE WAS FOUND Confirmed by ARABELLA LUCAS MD ([id number]) on 09/18/2017 10:44:39 AM Referred By: Confirmed By:ARABELLA LUCAS MD
[2017-09-18] MEDS: PRENATAL VITAMINS W/ FOLIC ACID TABLET (FP) PO SCH (10:57)
[2017-09-18] MEDS: NICOTINE 14 MG/24 HOURS TOPICAL PATCH TD SCH (10:59)
--- NOTE | 2017-09-18 11:59 | PN ---
[facility] CIWA - CIWA Score Nausea/Vomitin Muscle Tremors: 3 Anxiety: 3 Agitation: 3 Paroxysmal Sweats: 1-Minimal Palms Moist Orientation: 0-Oriented Tacttile Disturbances: 1-Very Mild Itch/Numbness Auditory Disturbances: 1-Very Mild Visual Disturbances: 0-None Headache: 2-Mild CIWA-Ar Total Score: 17 [facility] COWS - Scale Resting Pulse: 0= [place] 80 or Below Sweatin= Chills/Flushing Restless Observation: 3= Extraneous Movement Pupil Size: 1= Pupils >than Normal Bone or Joint Aches: 2= Severe Diffuse Aches Runny Nose/ Eye Tearin= Runny Nose/Eyes GI Upset > 30mins: 3= Vomiting/Diarrhea Tremor Observation of Outstretched Hands: 2= Slight Tremor Visible Yawning Observation: 1= 1-2x During Session Anxiety or Irritability: 2=Irritable/Anxious Goose Flesh Skin: 0=Smooth Skin COWS Score: 17 [facility] Progress Note (SOAP) Subjective: alert,irritable,anxious,interrupted sleep,tremor,pain in the body and back Objective: 09/18/17 11:56 Vital Signs Temperature 98.2 F 09/18/17 10:02 Pulse Rate 70 09/18/17 10:02 Respiratory Rate 18 09/18/17 10:02 Blood Pressure 108/60 09/18/17 10:02 O2 Sat by Pulse Oximetry (%) ekg nsr,normal ecg Laboratory Last Values WBC 6.5 K/mm3 (4.0-10.0) 09/18/17 07:00 RBC 4.38 M/mm3 (4.00-5.60) 09/18/17 07:00 Hgb 13.8 GM/dL (11.7-16.9) 09/18/17 07:00 Hct 40.9 % (35.4-49) 09/18/17 07:00 MCV 93.3 fl (80-96) 09/18/17 07:00 MCH 31.5 pg (25.7-33.7) 09/18/17 07:00 MCHC 33.8 g/dl (32.0-35.9) 09/18/17 07:00 RDW 12.9 % (11.9-15.9) 09/18/17 07:00 Plt Count 167 K/MM3 (134-434) 09/18/17 07:00 MPV 9.1 fl (7.5-11.1) 09/18/17 07:00 Sodium 138 mmol/L (136-145) 09/18/17 07:00 Potassium 3.9 mmol/L (3.5-5.1) 09/18/17 07:00 Chloride 104 mmol/L (98-107) 09/18/17 07:00 Carbon Dioxide 27 mmol/L (21-32) 09/18/17 07:00 Anion Gap 7 (8-16) L 09/18/17 07:00 BUN 19 mg/dL (7-18) H 09/18/17 07:00 Creatinine 0.8 mg/dL (0.7-1.3) 09/18/17 07:00 Creat Clearance w eGFR > 60 (>60) 09/18/17 07:00 Random Glucose 109 mg/dL (74-106) H D 09/18/17 07:00 Calcium 7.7 mg/dL (8.5-10.1) L 09/18/17 07:00 Total Bilirubin 0.3 mg/dL (0.2-1.0) 09/18/17 07:00 AST 8 U/L (15-37) L 09/18/17 07:00 ALT 16 U/L (12-78) 09/18/17 07:00 Alkaline Phosphatase 66 U/L (45-117) 09/18/17 07:00 Total Protein 6.3 g/dl (6.4-8.2) L 09/18/17 07:00 Albumin 2.9 g/dl (3.4-5.0) L 09/18/17 07:00 Urine Color Dkyellow 09/17/17 22:42 Urine Appearance Slcloudy 09/17/17 22:42 Urine pH 5.0 (5.0-8.0) 09/17/17 22:42 Ur Specific [place] 1.025 (1.005-1.025) 09/17/17 22:42 Urine Protein Negative (NEGATIVE) 09/17/17 22:42 Urine Glucose (UA) Negative (NEGATIVE) 09/17/17 22:42 Urine Ketones Negative (NEGATIVE) 09/17/17 22:42 Urine Blood Negative (NEGATIVE) 09/17/17 22:42 Urine Nitrite Negative (NEGATIVE) 09/17/17 22:42 Urine Bilirubin Negative (NEGATIVE) 09/17/17 22:42 Urine Urobilinogen Negative mg/dL (0.2-1.0) 09/17/17 22:42 Ur Leukocyte Esterase Negative (NEGATIVE) 09/17/17 22:42 Assessment: 09/18/17 11:58 withdrawal symptom Plan: continue detox,keflex 500 mgs po tid
[2017-09-18] MEDS: CEPHALEXIN MONOHYDRATE 500 MG CAPSULE (UD) PO SCH ×2 (14:23→23:02)
[2017-09-18] MEDS: diphenhydrAMINE HCL 50 MG CAPSULE PO PRN (23:03)
[2017-09-18] MEDS: THIAMINE HCL 100 MG TABLET (FP) PO SCH (23:03)
[2017-09-19] MEDS: CEPHALEXIN MONOHYDRATE 500 MG CAPSULE (UD) PO SCH ×3 (06:02→22:27)
[2017-09-19] MEDS: chlordiazePOXIDE HCL 25 MG CAPSULE PO SCH ×3 (06:02→17:58)
[2017-09-19] MEDS: chlordiazePOXIDE HCL 25 MG CAPSULE PO PRN ×2 (08:46→14:58)
[2017-09-19] MEDS: NICOTINE 14 MG/24 HOURS TOPICAL PATCH TD SCH (10:53)
[2017-09-19] MEDS: PRENATAL VITAMINS W/ FOLIC ACID TABLET (FP) PO SCH (10:53)
[2017-09-19] MEDS: METHADONE HCL 5 MG TABLET (FOR DETOX USE ONLY) PO SCH (10:53)
--- NOTE | 2017-09-19 11:55 | PN ---
S CIWA - CIWA Score Nausea/Vomitin Muscle Tremors: 3 Anxiety: 2 Agitation: 2 Paroxysmal Sweats: 1-Minimal Palms Moist Orientation: 0-Oriented Tacttile Disturbances: 1-Very Mild Itch/Numbness Auditory Disturbances: 1-Very Mild Visual Disturbances: 0-None Headache: 2-Mild CIWA-Ar Total Score: 15 [facility]HS COWS - Scale Resting Pulse: 0= [place] 80 or Below Sweatin= Chills/Flushing Restless Observation: 3= Extraneous Movement Pupil Size: 1= Pupils >than Normal Bone or Joint Aches: 2= Severe Diffuse Aches Runny Nose/ Eye Tearin= Runny Nose/Eyes GI Upset > 30mins: 2= Nausea/Diarrhea Tremor Observation of Outstretched Hands: 2= Slight Tremor Visible Yawning Observation: 1= 1-2x During Session Anxiety or Irritability: 2=Irritable/Anxious Goose Flesh Skin: 0=Smooth Skin COWS Score: 16 S Progress Note (SOAP) Subjective: ALERT,IRRITABLE,ANXIOUS,INTERRUPTED SLEEP,TREMOR Objective: 09/19/17 11:53 Vital Signs Temperature 97.7 F 09/19/17 10:00 Pulse Rate 71 09/19/17 10:00 Respiratory Rate 18 09/19/17 10:00 Blood Pressure 121/76 09/19/17 10:00 O2 Sat by Pulse Oximetry (%) Laboratory Last Values WBC 6.5 K/mm3 (4.0-10.0) 09/18/17 07:00 RBC 4.38 M/mm3 (4.00-5.60) 09/18/17 07:00 Hgb 13.8 GM/dL (11.7-16.9) 09/18/17 07:00 Hct 40.9 % (35.4-49) 09/18/17 07:00 MCV 93.3 fl (80-96) 09/18/17 07:00 MCH 31.5 pg (25.7-33.7) 09/18/17 07:00 MCHC 33.8 g/dl (32.0-35.9) 09/18/17 07:00 RDW 12.9 % (11.9-15.9) 09/18/17 07:00 Plt Count 167 K/MM3 (134-434) 09/18/17 07:00 MPV 9.1 fl (7.5-11.1) 09/18/17 07:00 Sodium 138 mmol/L (136-145) 09/18/17 07:00 Potassium 3.9 mmol/L (3.5-5.1) 09/18/17 07:00 Chloride 104 mmol/L (98-107) 09/18/17 07:00 Carbon Dioxide 27 mmol/L (21-32) 09/18/17 07:00 Anion Gap 7 (8-16) L 09/18/17 07:00 BUN 19 mg/dL (7-18) H 09/18/17 07:00 Creatinine 0.8 mg/dL (0.7-1.3) 09/18/17 07:00 Creat Clearance w eGFR > 60 (>60) 09/18/17 07:00 Random Glucose 109 mg/dL (74-106) H D 09/18/17 07:00 Calcium 7.7 mg/dL (8.5-10.1) L 09/18/17 07:00 Total Bilirubin 0.3 mg/dL (0.2-1.0) 09/18/17 07:00 AST 8 U/L (15-37) L 09/18/17 07:00 ALT 16 U/L (12-78) 09/18/17 07:00 Alkaline Phosphatase 66 U/L (45-117) 09/18/17 07:00 Total Protein 6.3 g/dl (6.4-8.2) L 09/18/17 07:00 Albumin 2.9 g/dl (3.4-5.0) L 09/18/17 07:00 Urine Color Dkyellow 09/17/17 22:42 Urine Appearance Slcloudy 09/17/17 22:42 Urine pH 5.0 (5.0-8.0) 09/17/17 22:42 Ur Specific [place] 1.025 (1.005-1.025) 09/17/17 22:42 Urine Protein Negative (NEGATIVE) 09/17/17 22:42 Urine Glucose (UA) Negative (NEGATIVE) 09/17/17 22:42 Urine Ketones Negative (NEGATIVE) 09/17/17 22:42 Urine Blood Negative (NEGATIVE) 09/17/17 22:42 Urine Nitrite Negative (NEGATIVE) 09/17/17 22:42 Urine Bilirubin Negative (NEGATIVE) 09/17/17 22:42 Urine Urobilinogen Negative mg/dL (0.2-1.0) 09/17/17 22:42 Ur Leukocyte Esterase Negative (NEGATIVE) 09/17/17 22:42 RPR Titer Nonreactive (NONREACTIVE) 09/18/17 07:00 Hepatitis C Antibody 0.2 s/co ratio (0.0-0.9) 09/17/17 07:00 Assessment: 09/19/17 11:54 WITHDRAWAL SYMPTOM Plan: CONTINUE DETOX
[2017-09-19] MEDS: CYCLOBENZAPRINE HCL 10 MG TABLET (FP) PO PRN (17:57)
[2017-09-19] MEDS: diphenhydrAMINE HCL 50 MG CAPSULE PO PRN (22:27)
[2017-09-19] MEDS: THIAMINE HCL 100 MG TABLET (FP) PO SCH (22:27)
[2017-09-19] MEDS: chlordiazePOXIDE 5 MG CAPSULE PO SCH (22:27)
[2017-09-20] MEDS: diphenhydrAMINE HCL 50 MG CAPSULE PO PRN ×2 (00:38→22:37)
[2017-09-20] MEDS: chlordiazePOXIDE HCL 25 MG CAPSULE PO PRN ×4 (00:38→19:46)
[2017-09-20] MEDS: chlordiazePOXIDE 5 MG CAPSULE PO SCH ×3 (05:27→17:18)
[2017-09-20] MEDS: CEPHALEXIN MONOHYDRATE 500 MG CAPSULE (UD) PO SCH ×3 (05:27→22:36)
[2017-09-20] MEDS: PRENATAL VITAMINS W/ FOLIC ACID TABLET (FP) PO SCH (10:49)
[2017-09-20] MEDS: NICOTINE 14 MG/24 HOURS TOPICAL PATCH TD SCH (10:50)
[2017-09-20] MEDS: METHADONE HCL 5 MG TABLET (FOR DETOX USE ONLY) PO SCH (10:50)
[2017-09-20] MEDS: cloNIDine HCL 0.1 MG TABLET PO SCH ×2 (10:51→22:39)
[2017-09-20] MEDS: hydrOXYzine PAMOATE 50 MG CAPSULE (FP) PO PRN ×2 (12:13→17:20)
[2017-09-20] MEDS: CYCLOBENZAPRINE HCL 10 MG TABLET (FP) PO PRN (12:13)
--- NOTE | 2017-09-20 12:43 | PN ---
[facility] Progress Note (SOAP) Subjective: ALERT,IRRITABLE,ANXIOUS,INTERRUPTED SLEEP,TREMOR,PAIN IN THE BODY AND BACK Objective: 09/20/17 12:42 Vital Signs Temperature 97.9 F 09/20/17 10:24 Pulse Rate 70 09/20/17 10:24 Respiratory Rate 18 09/20/17 10:24 Blood Pressure 109/67 09/20/17 10:24 O2 Sat by Pulse Oximetry (%) Assessment: 09/20/17 12:43 WITHDRAWAL SYMPTOM Plan: CONTINUE DETOX
[2017-09-20] MEDS: chlordiazePOXIDE HCL 10 MG CAPSULE PO SCH (22:36)
[2017-09-20] MEDS: THIAMINE HCL 100 MG TABLET (FP) PO SCH (22:36)
[2017-09-21] MEDS: diphenhydrAMINE HCL 50 MG CAPSULE PO PRN (01:36)
[2017-09-21] MEDS: hydrOXYzine PAMOATE 50 MG CAPSULE (FP) PO PRN ×3 (02:56→13:45)
[2017-09-21] MEDS: CYCLOBENZAPRINE HCL 10 MG TABLET (FP) PO PRN ×2 (05:32→13:31)
[2017-09-21] MEDS: chlordiazePOXIDE HCL 10 MG CAPSULE PO SCH ×2 (05:32→10:47)
[2017-09-21] MEDS: CEPHALEXIN MONOHYDRATE 500 MG CAPSULE (UD) PO SCH ×2 (05:32→13:29)
[2017-09-21] MEDS ORDERED: METHADONE HCL 10 MG TABLET (FOR DETOX USE ONLY) PO SCH (10:00)
[2017-09-21] MEDS: cloNIDine HCL 0.1 MG TABLET PO SCH (10:47)
[2017-09-21] MEDS: PRENATAL VITAMINS W/ FOLIC ACID TABLET (FP) PO SCH (10:47)
[2017-09-21] MEDS: NICOTINE 14 MG/24 HOURS TOPICAL PATCH TD SCH (10:48)
[2017-09-21 11:05] VITALS: BP 116/69; PULSE 67; TEMP 96.8
--- NOTE | 2017-09-21 12:14 | PN ---
S Progress Note (SOAP) Subjective: ALERT,NO COMPLAINT Objective: 09/21/17 12:12 Vital Signs Temperature 96.8 F L 09/21/17 10:00 Pulse Rate 67 09/21/17 10:00 Respiratory Rate 16 09/21/17 10:00 Blood Pressure 116/69 09/21/17 10:00 O2 Sat by Pulse Oximetry (%) Assessment: 09/21/17 12:12 STABLE FOR DISCHARGE Plan: DISCHARGE ,FOLLOW UP WITH AFTER CARE PROGRAM ARRANGEMENT
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
[2017-09-22] MEDS ORDERED: METHADONE HCL 5 MG TABLET (FOR DETOX USE ONLY) PO SCH (06:00)
== END 2017-09-21 13:45 | disposition home or self-care (01) | DRG 773 ==
LOC: YASAS 17:22 → Y6N 22:15
PROVIDERS: ADMIT Internal Medicine; ATTEND Internal Medicine
PROC: HZ2ZZZZ Detoxification Services for Substance Abuse Treatment (ICD-10-PCS; principal; 2017-09-17)
DX: F11.23 Opioid dependence with withdrawal (principal); F10.230 Alcohol dependence with withdrawal, uncomplicated; F14.20 Cocaine dependence, uncomplicated; F17.210 Nicotine dependence, cigarettes, uncomplicated; R00.0 Tachycardia, unspecified; L02.414 Cutaneous abscess of left upper limb
CPT/HCPCS: 36415; 80053; 81003; 85027; 86593; 86803; 93005; 93010

== ENCOUNTER 2017-10-18 12:06 | Inpatient (IN) | payer OTHER ==
[2017-10-18 12:55] VITALS: BMI 20.9
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
[2017-10-18] MEDS ORDERED: MENTHOL/PHENOL 1 EACH UD MM PRN (13:24)
[2017-10-18] MEDS ORDERED: MAG HYDROX/AL HYDROX/SIMETH 30 ML UNIT-DOSE CUP PO PRN (13:24)
[2017-10-18] MEDS ORDERED: MAGNESIUM HYDROX 2400MG/30ML ORAL SUSPENSION 30 ML CUP PO PRN (13:24)
[2017-10-18] MEDS ORDERED: LOPERAMIDE HCL 2 MG CAPSULE PO PRN (13:24)
[2017-10-18] MEDS ORDERED: MAGNESIUM CITRATE 300 ML BOTTLE PO PRN (13:24)
[2017-10-18] MEDS ORDERED: guaiFENesin/D-METHORPHAN HB 10 ML UNIT-DOSE CUPS PO PRN (13:24)
[2017-10-18] MEDS ORDERED: P-EPHED 60MG/TRIPROLIDI 2.5MG TABLET PO PRN (13:24)
[2017-10-18] MEDS ORDERED: METHADONE HCL 10 MG TABLET (FOR DETOX USE ONLY) PO ONE ×2 (15:00→23:00)
[2017-10-18] MEDS ORDERED: diazePAM 5 MG TABLET PO ONE (15:00)
[2017-10-18 20:05] LABS: URINE APPEARANCE SLCLOUDY; URINE BILIRUBIN NEGATIVE (NEGATIVE); URINE BLOOD NEGATIVE (NEGATIVE); URINE COLOR YELLOW; URINE GLUCOSE (UA) NEGATIVE (NEGATIVE); URINE KETONE NEGATIVE (NEGATIVE); URINE NITRITE NEGATIVE (NEGATIVE); URINE PROTEIN NEGATIVE (NEGATIVE); URINE UROBILINOGEN NEGATIVE mg/dL (0.2-1.0)
[2017-10-18] MEDS: diazePAM 5 MG TABLET PO PRN (20:09)
[2017-10-18 21:54] LABS: URINE LEUK ESTERASE Negative (NEGATIVE)
[2017-10-18] MEDS: THIAMINE HCL 100 MG TABLET (FP) PO SCH (22:23)
[2017-10-18] MEDS: diazePAM 5 MG TABLET PO SCH (22:23)
[2017-10-19] MEDS: diazePAM 5 MG TABLET PO PRN ×3 (03:34→17:27)
[2017-10-19] MEDS: diazePAM 5 MG TABLET PO SCH ×3 (05:43→22:23)
[2017-10-19] MEDS: PRENATAL VITAMINS W/ FOLIC ACID TABLET (FP) PO SCH (09:38)
[2017-10-19] MEDS ORDERED: METHADONE HCL 10 MG TABLET (FOR DETOX USE ONLY) PO SCH (10:00)
[2017-10-19 10:13] LABS: MCH 31.2 pg (25.7-33.7); MCHC 33.4 g/dl (32.0-35.9); MEAN CELL VOLUME 93.6 fl (80-96); MEAN PLT VOLUME 9.3 fl (7.5-11.1); PLATELET COUNT 147 K/MM3 (134-434); RDW 12.9 % (11.9-15.9)
[2017-10-19 10:20] LABS: ALBUMIN 3.1 g/dl (3.4-5.0); ANION GAP 5 (8-16); CALCIUM 7.8 mg/dL (8.5-10.1); CO2 29 mmol/L (21-32); GLUCOSE,RANDOM 82 mg/dL (74-106)
[2017-10-19 10:24] LABS: ALK PHOS 65 U/L (45-117); BILIRUBIN,TOTAL 0.6 mg/dL (0.2-1.0); CREATININE 0.7 mg/dL (0.7-1.3); SGOT/AST 13 U/L (15-37); SGPT/ALT 19 U/L (12-78); TOT PROT 6.3 g/dl (6.4-8.2)
[2017-10-19] MEDS ORDERED: NICOTINE POLACRILEX 2 MG GUM BUC PRN (12:56)
--- NOTE | 2017-10-19 13:05 | PN ---
[facility] CIWA - CIWA Score Nausea/Vomitin Muscle Tremors: 4-Moderate,w/Arms Extend Anxiety: 4-Mod. Anxious/Guarded Agitation: 4-Moderately Restless Paroxysmal Sweats: 3 Orientation: 0-Oriented Tacttile Disturbances: 1-Very Mild Itch/Numbness Auditory Disturbances: 0-None Visual Disturbances: 0-None Headache: 2-Mild CIWA-Ar Total Score: 21 S COWS - Scale Resting Pulse: 1= MT 81-100 Sweatin=Flushed/Facial Moisture Restless Observation: 3= Extraneous Movement Pupil Size: 0= Normal to Room Light Bone or Joint Aches: 2= Severe Diffuse Aches Runny Nose/ Eye Tearin= Runny Nose/Eyes GI Upset > 30mins: 2= Nausea/Diarrhea Tremor Observation of Outstretched Hands: 2= Slight Tremor Visible Yawning Observation: 0= None Anxiety or Irritability: 2=Irritable/Anxious Goose Flesh Skin: 0=Smooth Skin COWS Score: 16 S Progress Note (SOAP) Subjective: Rhinorrhea, teary eyes, interrupted sleep, sweating, nausea Objective: 10/19/17 13:00 Last Vital Signs Temp Pulse Resp BP Pulse Ox 98.1 F 92 H 18 111/73 10/19/17 09:48 10/19/17 09:48 10/19/17 09:48 10/19/17 09:48 Laboratory Tests 10/18/17 10/19/17 10/19/17 19:00 07:40 07:40 WBC 5.0 RBC 4.34 Hgb 13.5 Hct 40.6 MCV 93.6 MCH 31.2 MCHC 33.4 RDW 12.9 Plt Count 147 MPV 9.3 Manual Slide Review No Result Required. Sodium 139 Potassium 3.9 Chloride 105 Carbon Dioxide 29 Anion Gap 5 L BUN 15 D Creatinine 0.7 Creat Clearance w eGFR > 60 Random Glucose 82 D Calcium 7.8 L Total Bilirubin 0.6 D AST 13 L D ALT 19 Alkaline Phosphatase 65 Total Protein 6.3 L Albumin 3.1 L Urine Color Yellow Urine Appearance Slcloudy Urine pH 5.0 Ur Specific [place] 1.030 Urine Protein Negative Urine Glucose (UA) Negative Urine Ketones Negative Urine Blood Negative Urine Nitrite Negative Urine Bilirubin Negative Urine Urobilinogen Negative Ur Leukocyte Esterase Negative RPR Titer 10/19/17 07:40 WBC RBC Hgb Hct MCV MCH MCHC RDW Plt Count MPV Manual Slide Review Sodium Potassium Chloride Carbon Dioxide Anion Gap BUN Creatinine Creat Clearance w eGFR Random Glucose Calcium Total Bilirubin AST ALT Alkaline Phosphatase Total Protein Albumin Urine Color Urine Appearance Urine pH Ur Specific [place] Urine Protein Urine Glucose (UA) Urine Ketones Urine Blood Urine Nitrite Urine Bilirubin Urine Urobilinogen Ur Leukocyte Esterase RPR Titer Nonreactive Labs noted: serum calcium 7.8 Assessment: 10/19/17 13:02 Withdrawal symptoms Noted with hypocalcemia Plan: Continue detox Encouraged to drink lots of water Hypocalcemia: start Os-shelbi 500mg PO BID with food, repeat serum Calcium level on 10/21/17
[2017-10-19] MEDS: BACITRACIN 15 GM TUBE TOPICAL OINTMENT TP SCH ×2 (13:45→22:23)
[2017-10-19] MEDS: CALCIUM (OYSTER SHELL) 500 MG TABLET (FP) PO SCH ×2 (17:27→22:23)
[2017-10-19] MEDS: THIAMINE HCL 100 MG TABLET (FP) PO SCH (22:23)
[2017-10-19] MEDS: hydrOXYzine PAMOATE 50 MG CAPSULE (FP) PO PRN (22:24)
[2017-10-20] MEDS: diazePAM 5 MG TABLET PO PRN ×3 (02:36→17:19)
[2017-10-20] MEDS: METHADONE HCL 5 MG TABLET (FOR DETOX USE ONLY) PO SCH (10:15)
[2017-10-20] MEDS: PRENATAL VITAMINS W/ FOLIC ACID TABLET (FP) PO SCH (10:15)
[2017-10-20] MEDS: diazePAM 5 MG TABLET PO SCH ×2 (10:15→23:30)
[2017-10-20] MEDS: BACITRACIN 15 GM TUBE TOPICAL OINTMENT TP SCH ×2 (10:16→23:33)
--- NOTE | 2017-10-20 11:14 | PN ---
[facility] CIWA - CIWA Score Nausea/Vomitin-No Nausea/No Vomiting Muscle Tremors: 4-Moderate,w/Arms Extend Anxiety: 4-Mod. Anxious/Guarded Agitation: 4-Moderately Restless Paroxysmal Sweats: 1-Minimal Palms Moist Orientation: 0-Oriented Tacttile Disturbances: 3-Moderate Itch/Numb/Burn Auditory Disturbances: 0-None Visual Disturbances: 0-None Headache: 0-None Present CIWA-Ar Total Score: 16 S COWS - Scale Resting Pulse: 0= CT 80 or Below Sweatin= Chills/Flushing Restless Observation: 3= Extraneous Movement Pupil Size: 2= Moderately Dilated Bone or Joint Aches: 1= Mild Discomfort Runny Nose/ Eye Tearin= Nasal Congestion GI Upset > 30mins: 0= None Tremor Observation of Outstretched Hands: 2= Slight Tremor Visible Yawning Observation: 1= 1-2x During Session Anxiety or Irritability: 2=Irritable/Anxious Goose Flesh Skin: 0=Smooth Skin COWS Score: 13 [facility] Progress Note (SOAP) Subjective: SLIGHT ANXIETY,SWEATS,FATIGUE. Objective: 10/20/17 11:13 Vital Signs Temperature 97.0 F L 10/20/17 09:03 Pulse Rate 79 10/20/17 09:03 Respiratory Rate 20 10/20/17 09:03 Blood Pressure 111/64 10/20/17 09:03 O2 Sat by Pulse Oximetry (%) Laboratory Last Values WBC 5.0 K/mm3 (4.0-10.0) 10/19/17 07:40 RBC 4.34 M/mm3 (4.00-5.60) 10/19/17 07:40 Hgb 13.5 GM/dL (11.7-16.9) 10/19/17 07:40 Hct 40.6 % (35.4-49) 10/19/17 07:40 MCV 93.6 fl (80-96) 10/19/17 07:40 MCH 31.2 pg (25.7-33.7) 10/19/17 07:40 MCHC 33.4 g/dl (32.0-35.9) 10/19/17 07:40 RDW 12.9 % (11.9-15.9) 10/19/17 07:40 Plt Count 147 K/MM3 (134-434) 10/19/17 07:40 MPV 9.3 fl (7.5-11.1) 10/19/17 07:40 Manual Slide Review No Result Required. 10/19/17 07:40 Sodium 139 mmol/L (136-145) 10/19/17 07:40 Potassium 3.9 mmol/L (3.5-5.1) 10/19/17 07:40 Chloride 105 mmol/L (98-107) 10/19/17 07:40 Carbon Dioxide 29 mmol/L (21-32) 10/19/17 07:40 Anion Gap 5 (8-16) L 10/19/17 07:40 BUN 15 mg/dL (7-18) D 10/19/17 07:40 Creatinine 0.7 mg/dL (0.7-1.3) 10/19/17 07:40 Creat Clearance w eGFR > 60 (>60) 10/19/17 07:40 Random Glucose 82 mg/dL (74-106) D 10/19/17 07:40 Calcium 7.8 mg/dL (8.5-10.1) L 10/19/17 07:40 Total Bilirubin 0.6 mg/dL (0.2-1.0) D 10/19/17 07:40 AST 13 U/L (15-37) L D 10/19/17 07:40 ALT 19 U/L (12-78) 10/19/17 07:40 Alkaline Phosphatase 65 U/L (45-117) 10/19/17 07:40 Total Protein 6.3 g/dl (6.4-8.2) L 10/19/17 07:40 Albumin 3.1 g/dl (3.4-5.0) L 10/19/17 07:40 Urine Color Yellow 10/18/17 19:00 Urine Appearance Slcloudy 10/18/17 19:00 Urine pH 5.0 (5.0-8.0) 10/18/17 19:00 Ur Specific [place] 1.030 (1.001-1.035) 10/18/17 19:00 Urine Protein Negative (NEGATIVE) 10/18/17 19:00 Urine Glucose (UA) Negative (NEGATIVE) 10/18/17 19:00 Urine Ketones Negative (NEGATIVE) 10/18/17 19:00 Urine Blood Negative (NEGATIVE) 10/18/17 19:00 Urine Nitrite Negative (NEGATIVE) 10/18/17 19:00 Urine Bilirubin Negative (NEGATIVE) 10/18/17 19:00 Urine Urobilinogen Negative mg/dL (0.2-1.0) 10/18/17 19:00 Ur Leukocyte Esterase Negative (NEGATIVE) 10/18/17 19:00 RPR Titer Nonreactive (NONREACTIVE) 10/19/17 07:40 Assessment: 10/20/17 11:13 WITHDRAWAL SX Plan: CONTINUE DETOX
[2017-10-20] MEDS: CALCIUM (OYSTER SHELL) 500 MG TABLET (FP) PO SCH ×3 (12:07→23:30)
[2017-10-20] MEDS: IBUPROFEN 400 MG TABLET (FP) PO PRN (13:29)
[2017-10-20] MEDS: ACETAMINOPHEN 325 MG TABLET (FP) PO PRN ×2 (18:12→23:54)
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
[2017-10-20] MEDS: hydrOXYzine PAMOATE 50 MG CAPSULE (FP) PO PRN (23:30)
[2017-10-20] MEDS: THIAMINE HCL 100 MG TABLET (FP) PO SCH (23:32)
--- NOTE | 2017-10-21 01:03 | EKG ---
Test Reason : Blood Pressure : / mmHG Vent. Rate : 082 BPM Atrial Rate : 082 BPM P-R Int : 132 ms QRS Dur : 098 ms QT Int : 368 ms P-R-T Axes : 077 078 066 degrees QTc Int : 429 ms NORMAL SINUS RHYTHM EARLY REPOLARIZATION NORMAL ECG WHEN COMPARED WITH ECG OF 17-SEP-2017 22:36, NO SIGNIFICANT CHANGE WAS FOUND Confirmed by MANN WOLF MD ([id number]) on 10/21/2017 1:03:10 AM Referred By: Confirmed By:MANN WOLF MD
[2017-10-21] MEDS: IBUPROFEN 400 MG TABLET (FP) PO PRN (05:18)
[2017-10-21] MEDS: diazePAM 5 MG TABLET PO PRN (05:18)
[2017-10-21] MEDS: PRENATAL VITAMINS W/ FOLIC ACID TABLET (FP) PO SCH (10:26)
[2017-10-21] MEDS: METHADONE HCL 5 MG TABLET (FOR DETOX USE ONLY) PO SCH (10:27)
[2017-10-21] MEDS: diazePAM 5 MG TABLET PO SCH ×2 (10:27→22:20)
[2017-10-21] MEDS: BACITRACIN 0.9 GM PACKET TP SCH ×2 (10:27→22:20)
[2017-10-21] MEDS: CALCIUM (OYSTER SHELL) 500 MG TABLET (FP) PO SCH ×2 (10:27→22:20)
--- NOTE | 2017-10-21 10:51 | PN ---
S Progress Note (SOAP) Subjective: ALERT O X 3. PT IN BED AND OFFERED TO C/O CONTINUED W/S. C/O SLIGHT PAIN TO LEFT SHOULDER BUT SAYS "I'M TAKING MOTRIN AND IT'S OK". Objective: 10/21/17 10:51 Vital Signs Temperature 96.2 F L 10/21/17 09:08 Pulse Rate 78 10/21/17 09:08 Respiratory Rate 18 10/21/17 09:08 Blood Pressure 113/71 10/21/17 09:08 O2 Sat by Pulse Oximetry (%) Laboratory Last Values WBC 5.0 K/mm3 (4.0-10.0) 10/19/17 07:40 RBC 4.34 M/mm3 (4.00-5.60) 10/19/17 07:40 Hgb 13.5 GM/dL (11.7-16.9) 10/19/17 07:40 Hct 40.6 % (35.4-49) 10/19/17 07:40 MCV 93.6 fl (80-96) 10/19/17 07:40 MCH 31.2 pg (25.7-33.7) 10/19/17 07:40 MCHC 33.4 g/dl (32.0-35.9) 10/19/17 07:40 RDW 12.9 % (11.9-15.9) 10/19/17 07:40 Plt Count 147 K/MM3 (134-434) 10/19/17 07:40 MPV 9.3 fl (7.5-11.1) 10/19/17 07:40 Manual Slide Review No Result Required. 10/19/17 07:40 Sodium 139 mmol/L (136-145) 10/19/17 07:40 Potassium 3.9 mmol/L (3.5-5.1) 10/19/17 07:40 Chloride 105 mmol/L (98-107) 10/19/17 07:40 Carbon Dioxide 29 mmol/L (21-32) 10/19/17 07:40 Anion Gap 5 (8-16) L 10/19/17 07:40 BUN 15 mg/dL (7-18) D 10/19/17 07:40 Creatinine 0.7 mg/dL (0.7-1.3) 10/19/17 07:40 Creat Clearance w eGFR > 60 (>60) 10/19/17 07:40 Random Glucose 82 mg/dL (74-106) D 10/19/17 07:40 Calcium 7.8 mg/dL (8.5-10.1) L 10/19/17 07:40 Total Bilirubin 0.6 mg/dL (0.2-1.0) D 10/19/17 07:40 AST 13 U/L (15-37) L D 10/19/17 07:40 ALT 19 U/L (12-78) 10/19/17 07:40 Alkaline Phosphatase 65 U/L (45-117) 10/19/17 07:40 Total Protein 6.3 g/dl (6.4-8.2) L 10/19/17 07:40 Albumin 3.1 g/dl (3.4-5.0) L 10/19/17 07:40 Urine Color Yellow 10/18/17 19:00 Urine Appearance Slcloudy 10/18/17 19:00 Urine pH 5.0 (5.0-8.0) 10/18/17 19:00 Ur Specific [place] 1.030 (1.001-1.035) 10/18/17 19:00 Urine Protein Negative (NEGATIVE) 10/18/17 19:00 Urine Glucose (UA) Negative (NEGATIVE) 10/18/17 19:00 Urine Ketones Negative (NEGATIVE) 10/18/17 19:00 Urine Blood Negative (NEGATIVE) 10/18/17 19:00 Urine Nitrite Negative (NEGATIVE) 10/18/17 19:00 Urine Bilirubin Negative (NEGATIVE) 10/18/17 19:00 Urine Urobilinogen Negative mg/dL (0.2-1.0) 10/18/17 19:00 Ur Leukocyte Esterase Negative (NEGATIVE) 10/18/17 19:00 RPR Titer Nonreactive (NONREACTIVE) 10/19/17 07:40 XRAYS OF LEFT ELBOW X 2 DONE SHOWED SAME RESULT. NO ACUTE FRACTURE OR DISLOCATION. PT WILL BE GIVEN THE TWO COPIES OF XRAY FOR PMD/ORTHOPEDIC FOLLOW UP NEEDED AFTER DETOX. Assessment: 10/21/17 10:51 WITHDRAWAL SX Plan: CONTINUE DETOX MONITOR NEEDED.
[2017-10-21] MEDS: hydrOXYzine PAMOATE 50 MG CAPSULE (FP) PO PRN ×3 (13:35→22:21)
[2017-10-21] MEDS: THIAMINE HCL 100 MG TABLET (FP) PO SCH (22:20)
[2017-10-22] MEDS: hydrOXYzine PAMOATE 50 MG CAPSULE (FP) PO PRN (05:13)
[2017-10-22] MEDS: ACETAMINOPHEN 325 MG TABLET (FP) PO PRN (05:13)
[2017-10-22 09:07] VITALS: BP 116/75; PULSE 71; TEMP 96.8
[2017-10-22] MEDS ORDERED: diazePAM 5 MG TABLET PO SCH (10:00)
[2017-10-22] MEDS ORDERED: METHADONE HCL 10 MG TABLET (FOR DETOX USE ONLY) PO SCH (10:00)
[2017-10-22] MEDS: BACITRACIN 0.9 GM PACKET TP SCH (10:10)
[2017-10-22] MEDS: PRENATAL VITAMINS W/ FOLIC ACID TABLET (FP) PO SCH (10:11)
[2017-10-22] MEDS: CALCIUM (OYSTER SHELL) 500 MG TABLET (FP) PO SCH (10:11)
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
[2017-10-23] MEDS ORDERED: METHADONE HCL 5 MG TABLET (FOR DETOX USE ONLY) PO SCH (06:00)
--- NOTE | 2017-10-23 08:37 | DS ---
[facility] Detox Discharge Summary Admission Date: 10/18/17 - Physical Exam Results Vital Signs: Vital Signs Temperature 96.8 F L 10/22/17 09:06 Pulse Rate 71 10/22/17 09:06 Respiratory Rate 18 10/22/17 09:06 Blood Pressure 116/75 10/22/17 09:06 O2 Sat by Pulse Oximetry (%) - Medication Discharge Medications: Ambulatory Orders NK [No Known Home Medication] 10/18/17 - Diagnosis (1) Alcohol dependence with uncomplicated withdrawal Status: Acute (2) Opioid dependence with withdrawal Status: Acute (3) Sedative, hypnotic or anxiolytic dependence with withdrawal, uncomplicated Status: Acute (4) Cocaine dependence, uncomplicated Status: Acute (5) Nicotine dependence Status: Acute Qualifiers: Nicotine product type: cigarettes Substance use status: in withdrawal Qualified Code(s): F17.213 - Nicotine dependence, cigarettes, with withdrawal (6) Skin lesion due to intravenous drug abuse Status: Acute
== END 2017-10-22 13:18 | disposition left against medical advice (07) | DRG 770 ==
LOC: YASAS 12:06 → Y3N 14:21
PROVIDERS: ADMIT Internal Medicine; ATTEND Internal Medicine
PROC: HZ2ZZZZ Detoxification Services for Substance Abuse Treatment (ICD-10-PCS; principal; 2017-10-18)
DX: F11.23 Opioid dependence with withdrawal (principal); F13.230 Sedative, hypnotic or anxiolytic dependence with withdrawal, uncomplicated; F10.230 Alcohol dependence with withdrawal, uncomplicated; F14.20 Cocaine dependence, uncomplicated; F17.213 Nicotine dependence, cigarettes, with withdrawal; M25.522 Pain in left elbow; E83.51 Hypocalcemia; L98.8 Other specified disorders of the skin and subcutaneous tissue; W22.8XXA Striking against or struck by other objects, initial encounter; Y93.9 Activity, unspecified; Y92.231 Patient bathroom in hospital as the place of occurrence of the external cause
CPT/HCPCS: 36415; 73070-TC-LT; 80053; 81003; 82310; 85027; 86593; 93005; 93010

== ENCOUNTER 2017-10-20 19:21 | Emergency (ER) | payer OTHER ==
[2017-10-20 19:28] VITALS: BP 118/62; PULSE 90; TEMP 98.2; BMI 20.9
--- NOTE | 2017-10-20 19:29 | PDOC ---
Rapid Medical Evaluation Time Seen by Provider: 10/20/17 19:25 Medical Evaluation: Allergies Allergy/AdvReac Type Severity Reaction Status Date / Time No Known Allergies Allergy Verified 10/20/17 19:25 10/20/17 19:25 I have performed a brief in person evaluation of this patient. The patient presents with chief complaint of : left elbow injury in the shower at [address] [place] [address] Pertinent PE findings: TTP left elbow no deformity nv intact strong radial pulse I have ordered the following: left elbow xray The patient will proceed to the ER for further evaluation.
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
== END 2017-10-20 20:49 | disposition home or self-care (01) ==
LOC: JERFT 19:21
DX: S50.02XA Contusion of left elbow, initial encounter (principal); W22.8XXA Striking against or struck by other objects, initial encounter; Y93.E1 Activity, personal bathing and showering; Y92.231 Patient bathroom in hospital as the place of occurrence of the external cause; Y99.8 Other external cause status; F11.20 Opioid dependence, uncomplicated; F13.20 Sedative, hypnotic or anxiolytic dependence, uncomplicated; F14.20 Cocaine dependence, uncomplicated; F10.20 Alcohol dependence, uncomplicated; F17.210 Nicotine dependence, cigarettes, uncomplicated; Z87.81 Personal history of (healed) traumatic fracture
CPT/HCPCS: 73070-TC-LT; 99281-25

== ENCOUNTER 2018-09-30 09:06 | Inpatient (IN) | payer OTHER ==
[2018-09-30 10:27] VITALS: BMI 18.9
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
[2018-09-30] MEDS ORDERED: METHADONE HCL 10 MG TABLET (FOR DETOX USE ONLY) PO ONE ×2 (12:01→23:00)
[2018-09-30] MEDS ORDERED: diazePAM 5 MG TABLET PO ONE (12:01)
[2018-09-30] MEDS ORDERED: ACETAMINOPHEN 325 MG TABLET (FP) PO PRN (12:02)
[2018-09-30] MEDS ORDERED: MAGNESIUM CITRATE 300 ML BOTTLE PO PRN (12:02)
[2018-09-30] MEDS ORDERED: hydrOXYzine PAMOATE 50 MG CAPSULE (FP) PO PRN (12:02)
[2018-09-30] MEDS ORDERED: guaiFENesin/D-METHORPHAN HB 10 ML UNIT-DOSE CUPS PO PRN (12:02)
[2018-09-30] MEDS ORDERED: MENTHOL/PHENOL 1 EACH UD MM PRN (12:02)
[2018-09-30] MEDS ORDERED: LOPERAMIDE HCL 2 MG CAPSULE PO PRN (12:02)
[2018-09-30] MEDS ORDERED: P-EPHED 60MG/TRIPROLIDI 2.5MG TABLET PO PRN (12:02)
[2018-09-30] MEDS ORDERED: MAGNESIUM HYDROX 2400MG/30ML ORAL SUSPENSION 30 ML CUP PO PRN (12:02)
[2018-09-30] MEDS ORDERED: MAG HYDROX/AL HYDROX/SIMETH 30 ML UNIT-DOSE CUP PO PRN (12:02)
[2018-09-30] MEDS ORDERED: CYCLOBENZAPRINE HCL 10 MG TABLET (FP) PO PRN (12:08)
[2018-09-30] MEDS: CEPHALEXIN MONOHYDRATE 500 MG CAPSULE (UD) PO SCH ×2 (13:24→22:25)
[2018-09-30] MEDS: diazePAM 5 MG TABLET PO SCH ×2 (13:25→22:25)
--- NOTE | 2018-09-30 15:19 | EKG ---
Test Reason : Blood Pressure : / mmHG Vent. Rate : 064 BPM Atrial Rate : 064 BPM P-R Int : 134 ms QRS Dur : 098 ms QT Int : 406 ms P-R-T Axes : 079 078 070 degrees QTc Int : 418 ms NORMAL SINUS RHYTHM EARLY REPOLARIZATION NORMAL ECG WHEN COMPARED WITH ECG OF 18-OCT-2017 17:25, NO SIGNIFICANT CHANGE WAS FOUND Confirmed by DONNELL FERNANDEZ MD ([id number]) on 09/30/2018 3:19:21 PM Referred By: Confirmed By:DONNELL FERNANDEZ MD
[2018-09-30 17:07] LABS: URINE APPEARANCE CLEAR; URINE BILIRUBIN NEGATIVE (<2.0 mg/dL); URINE COLOR YELLOW; URINE GLUCOSE (UA) NEGATIVE (NEGATIVE); URINE KETONE NEGATIVE (NEGATIVE); URINE LEUK ESTERASE NEGATIVE (NEGATIVE); URINE NITRITE NEGATIVE (NEGATIVE); URINE PROTEIN NEGATIVE (NEGATIVE)
[2018-09-30] MEDS: diazePAM 5 MG TABLET PO PRN (17:17)
[2018-09-30] MEDS: THIAMINE HCL 100 MG TABLET (FP) PO SCH (22:25)
[2018-09-30] MEDS: BACITRACIN 0.9 GM PACKET TP SCH (22:25)
[2018-09-30] MEDS: cloNIDine HCL 0.1 MG TABLET PO SCH (22:25)
[2018-09-30] MEDS: MELATONIN 5 MG TABLETS PO PRN (22:26)
[2018-10-01] MEDS: diazePAM 5 MG TABLET PO SCH ×3 (05:43→21:55)
[2018-10-01] MEDS: CEPHALEXIN MONOHYDRATE 500 MG CAPSULE (UD) PO SCH ×3 (05:43→21:55)
[2018-10-01] MEDS: diazePAM 5 MG TABLET PO PRN ×3 (07:49→19:43)
[2018-10-01] MEDS ORDERED: METHADONE HCL 10 MG TABLET (FOR DETOX USE ONLY) PO SCH (10:00)
[2018-10-01] MEDS: cloNIDine HCL 0.1 MG TABLET PO SCH ×2 (10:43→21:56)
[2018-10-01] MEDS: BACITRACIN 0.9 GM PACKET TP SCH ×2 (10:43→21:55)
[2018-10-01] MEDS: PRENATAL VITAMINS W/ FOLIC ACID TABLET (FP) PO SCH (10:43)
[2018-10-01 10:46] LABS: HEMOGLOBIN 14.2 GM/dL (11.7-16.9); MCH 33.2 pg (25.7-33.7); MCHC 34.8 g/dl (32.0-35.9); MEAN CELL VOLUME 95.6 fl (80-96); MEAN PLT VOLUME 9.9 fl (7.5-11.1); PLATELET COUNT 212 K/MM3 (134-434); RBC 4.29 M/mm3 (4.00-5.60); RDW 12.7 % (11.9-15.9); WHITE BLOOD COUNT 10.2 K/mm3 (4.0-10.0)
[2018-10-01 10:52] LABS: ALBUMIN 3.8 g/dl (3.4-5.0); ALK PHOS 90 U/L (45-117); ANION GAP 8 MMOL/L (8-16); BILIRUBIN,TOTAL 0.5 mg/dL (0.2-1); BLOOD UREA NITROGEN 25 mg/dL (7-18); CALCIUM 8.6 mg/dL (8.5-10.1); CHLORIDE 102 mmol/L (98-107); CO2 29 mmol/L (21-32); CREATININE 0.9 mg/dL (0.55-1.3); GLUCOSE,RANDOM 100 mg/dL (74-106); SGOT/AST 42 U/L (15-37); SGPT/ALT 83 U/L (13-61); SODIUM 139 mmol/L (136-145); TOT PROT 7.9 g/dl (6.4-8.2)
--- NOTE | 2018-10-01 13:42 | PN ---
[facility] CIWA - CIWA Score Nausea/Vomitin Muscle Tremors: 4-Moderate,w/Arms Extend Anxiety: 4-Mod. Anxious/Guarded Agitation: 3 Paroxysmal Sweats: 3 Orientation: 0-Oriented Tacttile Disturbances: 0-None Auditory Disturbances: 0-None Visual Disturbances: 0-None Headache: 0-None Present CIWA-Ar Total Score: 17 [facility] COWS - Scale Resting Pulse: 0= AR 80 or Below Sweatin= Chills/Flushing Restless Observation: 3= Extraneous Movement Pupil Size: 0= Normal to Room Light Bone or Joint Aches: 2= Severe Diffuse Aches Runny Nose/ Eye Tearin= Runny Nose/Eyes GI Upset > 30mins: 2= Nausea/Diarrhea Tremor Observation of Outstretched Hands: 2= Slight Tremor Visible Yawning Observation: 1= 1-2x During Session Anxiety or Irritability: 2=Irritable/Anxious Goose Flesh Skin: 0=Smooth Skin COWS Score: 15 [facility] Progress Note (SOAP) Subjective: Tremor, interrupted sleep Objective: 10/01/18 13:39 Last Vital Signs Temp Pulse Resp BP Pulse Ox 98.8 F 65 18 101/57 L 10/01/18 09:15 10/01/18 09:15 10/01/18 09:15 10/01/18 09:15 Laboratory Tests 09/30/18 10/01/18 10/01/18 15:57 06:00 06:00 WBC 10.2 H RBC 4.29 Hgb 14.2 Hct 41.0 MCV 95.6 MCH 33.2 MCHC 34.8 RDW 12.7 Plt Count 212 D MPV 9.9 Sodium 139 Potassium 4.0 Chloride 102 Carbon Dioxide 29 Anion Gap 8 BUN 25 H Creatinine 0.9 Creat Clearance w eGFR > 60 Random Glucose 100 Calcium 8.6 Total Bilirubin 0.5 AST 42 H ALT 83 H Alkaline Phosphatase 90 Total Protein 7.9 Albumin 3.8 Urine Color Yellow Urine Appearance Clear Urine pH 5.0 Ur Specific [place] 1.031 Urine Protein Negative Urine Glucose (UA) Negative Urine Ketones Negative Urine Blood Negative Urine Nitrite Negative Urine Bilirubin Negative Urine Urobilinogen 2.0 Ur Leukocyte Esterase Negative Labs reviewed: bun 25 Assessment: 10/01/18 13:42 Withdrawal sxs Noted with azotemia Plan: Continue detox Azotemia: encouraged PO water intake
[2018-10-01] MEDS: THIAMINE HCL 100 MG TABLET (FP) PO SCH (21:56)
[2018-10-01] MEDS: MELATONIN 5 MG TABLETS PO PRN (21:56)
[2018-10-02] MEDS: diazePAM 5 MG TABLET PO PRN ×3 (05:51→18:28)
[2018-10-02] MEDS: CEPHALEXIN MONOHYDRATE 500 MG CAPSULE (UD) PO SCH ×2 (05:52→14:21)
[2018-10-02] MEDS ORDERED: diazePAM 5 MG TABLET PO SCH (10:00)
[2018-10-02] MEDS ORDERED: METHADONE HCL 5 MG TABLET (FOR DETOX USE ONLY) PO SCH (10:00)
[2018-10-02] MEDS: PRENATAL VITAMINS W/ FOLIC ACID TABLET (FP) PO SCH (10:37)
[2018-10-02] MEDS: BACITRACIN 0.9 GM PACKET TP SCH (10:37)
[2018-10-02] MEDS: cloNIDine HCL 0.1 MG TABLET PO SCH (10:37)
[2018-10-02] MEDS: IBUPROFEN 400 MG TABLET (FP) PO PRN ×2 (11:24→18:27)
[2018-10-02] MEDS ORDERED: LIDOCAINE VISCOUS 2% ORAL/TOP 20 ML UNIT-DOSE CUP MM PRN (15:05)
--- NOTE | 2018-10-02 15:10 | PN ---
S CIWA - CIWA Score Nausea/Vomitin-Mild Nausea/No Vomiting Muscle Tremors: 3 Anxiety: 3 Agitation: 3 Paroxysmal Sweats: 2 Orientation: 0-Oriented Tacttile Disturbances: 0-None Auditory Disturbances: 0-None Visual Disturbances: 0-None Headache: 0-None Present CIWA-Ar Total Score: 12 BHS COWS - Scale Resting Pulse: 0= MI 80 or Below Sweatin= Chills/Flushing Restless Observation: 3= Extraneous Movement Pupil Size: 0= Normal to Room Light Bone or Joint Aches: 1= Mild Discomfort Runny Nose/ Eye Tearin= Runny Nose/Eyes GI Upset > 30mins: 1= Stomach Cramp Tremor Observation of Outstretched Hands: 2= Slight Tremor Visible Yawning Observation: 0= None Anxiety or Irritability: 2=Irritable/Anxious Goose Flesh Skin: 0=Smooth Skin COWS Score: 12 [facility] Progress Note (SOAP) Subjective: Interrupted sleep, anxious. Patient c/o toothache and agreed to lidocaine solution oral prn. Objective: 10/02/18 15:09 Last Vital Signs Temp Pulse Resp BP Pulse Ox 96.7 F L 80 18 109/62 10/02/18 09:00 10/02/18 09:00 10/02/18 09:00 10/02/18 09:00 Laboratory Tests 09/30/18 10/01/18 10/01/18 15:57 06:00 06:00 WBC 10.2 H RBC 4.29 Hgb 14.2 Hct 41.0 MCV 95.6 MCH 33.2 MCHC 34.8 RDW 12.7 Plt Count 212 D MPV 9.9 Sodium 139 Potassium 4.0 Chloride 102 Carbon Dioxide 29 Anion Gap 8 BUN 25 H Creatinine 0.9 Creat Clearance w eGFR > 60 Random Glucose 100 Calcium 8.6 Total Bilirubin 0.5 AST 42 H ALT 83 H Alkaline Phosphatase 90 Total Protein 7.9 Albumin 3.8 Urine Color Yellow Urine Appearance Clear Urine pH 5.0 Ur Specific [place] 1.031 Urine Protein Negative Urine Glucose (UA) Negative Urine Ketones Negative Urine Blood Negative Urine Nitrite Negative Urine Bilirubin Negative Urine Urobilinogen 2.0 Ur Leukocyte Esterase Negative RPR Titer 10/01/18 06:00 WBC RBC Hgb Hct MCV MCH MCHC RDW Plt Count MPV Sodium Potassium Chloride Carbon Dioxide Anion Gap BUN Creatinine Creat Clearance w eGFR Random Glucose Calcium Total Bilirubin AST ALT Alkaline Phosphatase Total Protein Albumin Urine Color Urine Appearance Urine pH Ur Specific [place] Urine Protein Urine Glucose (UA) Urine Ketones Urine Blood Urine Nitrite Urine Bilirubin Urine Urobilinogen Ur Leukocyte Esterase RPR Titer Nonreactive Labs reviewed Assessment: 10/02/18 15:09 Withdrawal sxs Plan: Continue detox Encouraged PO water intake
[2018-10-02 17:37] VITALS: BP 101/69; PULSE 69; TEMP 97.7
--- NOTE | 2018-10-02 20:30 | DS ---
[facility] Detox Discharge Summary Admission Date: 09/30/18 Discharge Date: 10/02/18 - History Present History: Alcohol Dependence, Cocaine Dependence, Opioid Dependence, Sedative Dependence Pertinent Past History: Patient admitted with heroin, alcohol, Xanax withdrawal w/ co-morbid use of cocaine. - Physical Exam Results Vital Signs: Vital Signs Temperature 97.7 F 10/02/18 17:34 Pulse Rate 69 10/02/18 17:34 Respiratory Rate 18 10/02/18 17:34 Blood Pressure 101/69 10/02/18 17:34 O2 Sat by Pulse Oximetry (%) Pertinent Admission Physical Exam Findings: Admitted for opiate, alcohol, and anxiolytic detox. Cellulitis at injection drug use site noted on PE. Laboratory Last Values WBC 10.2 K/mm3 (4.0-10.0) H 10/01/18 06:00 RBC 4.29 M/mm3 (4.00-5.60) 10/01/18 06:00 Hgb 14.2 GM/dL (11.7-16.9) 10/01/18 06:00 Hct 41.0 % (35.4-49) 10/01/18 06:00 MCV 95.6 fl (80-96) 10/01/18 06:00 MCH 33.2 pg (25.7-33.7) 10/01/18 06:00 MCHC 34.8 g/dl (32.0-35.9) 10/01/18 06:00 RDW 12.7 % (11.9-15.9) 10/01/18 06:00 Plt Count 212 K/MM3 (134-434) D 10/01/18 06:00 MPV 9.9 fl (7.5-11.1) 10/01/18 06:00 Sodium 139 mmol/L (136-145) 10/01/18 06:00 Potassium 4.0 mmol/L (3.5-5.1) 10/01/18 06:00 Chloride 102 mmol/L (98-107) 10/01/18 06:00 Carbon Dioxide 29 mmol/L (21-32) 10/01/18 06:00 Anion Gap 8 MMOL/L (8-16) 10/01/18 06:00 BUN 25 mg/dL (7-18) H 10/01/18 06:00 Creatinine 0.9 mg/dL (0.55-1.3) 10/01/18 06:00 Creat Clearance w eGFR > 60 (>60) 10/01/18 06:00 Random Glucose 100 mg/dL (74-106) 10/01/18 06:00 Calcium 8.6 mg/dL (8.5-10.1) 10/01/18 06:00 Total Bilirubin 0.5 mg/dL (0.2-1) 10/01/18 06:00 AST 42 U/L (15-37) H 10/01/18 06:00 ALT 83 U/L (13-61) H 10/01/18 06:00 Alkaline Phosphatase 90 U/L (45-117) 10/01/18 06:00 Total Protein 7.9 g/dl (6.4-8.2) 10/01/18 06:00 Albumin 3.8 g/dl (3.4-5.0) 10/01/18 06:00 Urine Color Yellow 09/30/18 15:57 Urine Appearance Clear 09/30/18 15:57 Urine pH 5.0 (5.0-8.0) 09/30/18 15:57 Ur Specific [place] 1.031 (1.010-1.035) 09/30/18 15:57 Urine Protein Negative (NEGATIVE) 09/30/18 15:57 Urine Glucose (UA) Negative (NEGATIVE) 09/30/18 15:57 Urine Ketones Negative (NEGATIVE) 09/30/18 15:57 Urine Blood Negative (NEGATIVE) 09/30/18 15:57 Urine Nitrite Negative (NEGATIVE) 09/30/18 15:57 Urine Bilirubin Negative (<2.0 mg/dL) 09/30/18 15:57 Urine Urobilinogen 2.0 mg/dL (0.2-1.0) 09/30/18 15:57 Ur Leukocyte Esterase Negative (NEGATIVE) 09/30/18 15:57 RPR Titer Nonreactive (NONREACTIVE) 10/01/18 06:00 Labs reviewed. - Treatment Hospital Course: Detox Protocol Followed (Patient did nott complete detox) - Medication Discharge Medications: Ambulatory Orders NK [No Known Home Medication] 10/18/17 - Diagnosis (1) Alcohol dependence with uncomplicated withdrawal Status: Acute (2) Cellulitis Status: Acute Qualifiers: Site of cellulitis: extremity Site of cellulitis of extremity: upper extremity Laterality: unspecified laterality Qualified Code(s): L03.119 - Cellulitis of unspecified part of limb (3) Nicotine dependence Status: Acute Qualifiers: Nicotine product type: cigarettes Substance use status: in withdrawal Qualified Code(s): F17.213 - Nicotine dependence, cigarettes, with withdrawal (4) Opioid dependence with withdrawal Status: Acute (5) Sedative, hypnotic or anxiolytic dependence with withdrawal, uncomplicated Status: Acute (6) Skin lesion due to intravenous drug abuse Status: Acute - AMA Did Patient Leave Against Medical Advice: Yes (Patient did not wait to see provider and did not get rx for antibiotics. )
[2018-10-04] MEDS ORDERED: METHADONE HCL 10 MG TABLET (FOR DETOX USE ONLY) PO SCH (10:00)
[2018-10-04] MEDS ORDERED: diazePAM 5 MG TABLET PO SCH (10:00)
[2018-10-05] MEDS ORDERED: METHADONE HCL 5 MG TABLET (FOR DETOX USE ONLY) PO SCH (06:00)
== END 2018-10-02 19:45 | disposition left against medical advice (07) | DRG 770 ==
LOC: YASAS 09:06 → Y3N 12:03
PROC: HZ2ZZZZ Detoxification Services for Substance Abuse Treatment (ICD-10-PCS; principal; 2018-09-30)
DX: F11.23 Opioid dependence with withdrawal (principal); F10.230 Alcohol dependence with withdrawal, uncomplicated; F13.230 Sedative, hypnotic or anxiolytic dependence with withdrawal, uncomplicated; F14.20 Cocaine dependence, uncomplicated; F17.210 Nicotine dependence, cigarettes, uncomplicated; L98.8 Other specified disorders of the skin and subcutaneous tissue; L03.119 Cellulitis of unspecified part of limb; R76.11 Nonspecific reaction to tuberculin skin test without active tuberculosis; R79.89 Other specified abnormal findings of blood chemistry
CPT/HCPCS: 36415; 71046-TC-FY; 80053; 81003; 85027; 86593; 93005; 93010; J0735

== ENCOUNTER 2018-11-02 11:36 | Inpatient (IN) | payer OTHER ==
[2018-11-02 12:26] VITALS: BMI 19.3
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
[2018-11-02] MEDS ORDERED: ACETAMINOPHEN 325 MG TABLET (FP) PO PRN (15:50)
[2018-11-02] MEDS ORDERED: guaiFENesin/D-METHORPHAN HB 10 ML UNIT-DOSE CUPS PO PRN (15:50)
[2018-11-02] MEDS ORDERED: MAGNESIUM CITRATE 300 ML BOTTLE PO PRN (15:50)
[2018-11-02] MEDS ORDERED: LOPERAMIDE HCL 2 MG CAPSULE PO PRN (15:50)
[2018-11-02] MEDS ORDERED: MENTHOL/PHENOL 1 EACH UD MM PRN (15:50)
[2018-11-02] MEDS ORDERED: IBUPROFEN 400 MG TABLET (FP) PO PRN (15:50)
[2018-11-02] MEDS ORDERED: P-EPHED 60MG/TRIPROLIDI 2.5MG TABLET PO PRN (15:50)
[2018-11-02] MEDS ORDERED: NICOTINE POLACRILEX 2 MG GUM BC PRN (15:50)
[2018-11-02] MEDS ORDERED: MAGNESIUM HYDROX 2400MG/30ML ORAL SUSPENSION 30 ML CUP PO PRN (15:50)
[2018-11-02] MEDS ORDERED: diazePAM 5 MG TABLET PO ONE (17:00)
[2018-11-02] MEDS ORDERED: METHADONE HCL 10 MG TABLET (FOR DETOX USE ONLY) PO ONE ×2 (17:00→23:00)
[2018-11-02] MEDS: NICOTINE 14 MG/24 HOURS TOPICAL PATCH TD SCH (18:21)
[2018-11-02] MEDS: diazePAM 5 MG TABLET PO SCH (23:30)
[2018-11-02] MEDS: THIAMINE HCL 100 MG TABLET (FP) PO SCH (23:30)
[2018-11-03] MEDS: diazePAM 5 MG TABLET PO SCH ×3 (05:46→21:13)
[2018-11-03] MEDS ORDERED: METHADONE HCL 10 MG TABLET (FOR DETOX USE ONLY) PO SCH (10:00)
[2018-11-03] MEDS: PRENATAL VITAMINS W/ FOLIC ACID TABLET (FP) PO SCH (10:06)
[2018-11-03] MEDS: NICOTINE 14 MG/24 HOURS TOPICAL PATCH TD SCH (10:06)
[2018-11-03] MEDS: diazePAM 5 MG TABLET PO PRN ×3 (10:09→21:11)
[2018-11-03 11:10] LABS: HEMATOCRIT 41.2 % (35.4-49); HEMOGLOBIN 13.5 GM/dL (11.7-16.9); MCH 31.3 pg (25.7-33.7); MCHC 32.7 g/dl (32.0-35.9); MEAN CELL VOLUME 95.6 fl (80-96); MEAN PLT VOLUME 8.6 fl (7.5-11.1); PLATELET COUNT 177 K/MM3 (134-434); RBC 4.31 M/mm3 (4.00-5.60); RDW 12.6 % (11.9-15.9); WHITE BLOOD COUNT 5.3 K/mm3 (4.0-10.0)
[2018-11-03 11:11] LABS: ALBUMIN 3.1 g/dl (3.4-5.0); ALK PHOS 71 U/L (45-117); ANION GAP 5 MMOL/L (8-16); BILIRUBIN,TOTAL 0.4 mg/dL (0.2-1); BLOOD UREA NITROGEN 20 mg/dL (7-18); CALCIUM 8.1 mg/dL (8.5-10.1); CHLORIDE 102 mmol/L (98-107); CO2 29 mmol/L (21-32); CREATININE 0.9 mg/dL (0.55-1.3); GLUCOSE,RANDOM 83 mg/dL (74-106); POTASSIUM 4.3 mmol/L (3.5-5.1); SGOT/AST 48 U/L (15-37); SGPT/ALT 93 U/L (13-61); SODIUM 137 mmol/L (136-145); TOT PROT 6.5 g/dl (6.4-8.2)
--- NOTE | 2018-11-03 12:35 | PN ---
[facility] CIWA - CIWA Score Nausea/Vomitin-No Nausea/No Vomiting Muscle Tremors: 3 Anxiety: 3 Agitation: 3 Paroxysmal Sweats: 3 Orientation: 0-Oriented Tacttile Disturbances: 0-None Auditory Disturbances: 0-None Visual Disturbances: 0-None Headache: 1-Very Mild CIWA-Ar Total Score: 13 [facility] COWS - Scale Resting Pulse: 0= NM 80 or Below Sweatin=Flushed/Facial Moisture Restless Observation: 0= Sits Still Pupil Size: 0= Normal to Room Light Bone or Joint Aches: 2= Severe Diffuse Aches Runny Nose/ Eye Tearin= Nasal Congestion GI Upset > 30mins: 0= None Tremor Observation of Outstretched Hands: 2= Slight Tremor Visible Yawning Observation: 2= >3x During Session Anxiety or Irritability: 2=Irritable/Anxious Goose Flesh Skin: 0=Smooth Skin COWS Score: 11 S Progress Note (SOAP) Subjective: shakes sweats chills interrupted sleep body aches nasal congestion Objective: 11/03/18 12:34 Vital Signs Temperature 98.7 F 11/03/18 09:50 Pulse Rate 79 11/03/18 09:50 Respiratory Rate 18 11/03/18 09:50 Blood Pressure 110/59 L 11/03/18 09:50 O2 Sat by Pulse Oximetry (%) Laboratory Tests 11/03/18 11/03/18 11/03/18 07:00 07:00 07:00 WBC 5.3 RBC 4.31 Hgb 13.5 Hct 41.2 MCV 95.6 MCH 31.3 MCHC 32.7 RDW 12.6 Plt Count 177 MPV 8.6 D Sodium 137 Potassium 4.3 Chloride 102 Carbon Dioxide 29 Anion Gap 5 L BUN 20 H Creatinine 0.9 Creat Clearance w eGFR > 60 Random Glucose 83 Calcium 8.1 L Total Bilirubin 0.4 AST 48 H ALT 93 H Alkaline Phosphatase 71 Total Protein 6.5 Albumin 3.1 L RPR Titer Nonreactive aaox3 ambulating no acute distress Assessment: 11/03/18 12:35 withdrawal sx Plan: continue detox increase fluids actifid prn
[2018-11-03] MEDS: THIAMINE HCL 100 MG TABLET (FP) PO SCH (21:14)
[2018-11-03] MEDS: MELATONIN 5 MG TABLETS PO PRN (23:33)
[2018-11-04] MEDS: diazePAM 5 MG TABLET PO PRN ×4 (05:10→20:40)
[2018-11-04] MEDS: diazePAM 5 MG TABLET PO SCH ×2 (10:08→22:12)
[2018-11-04] MEDS: METHADONE HCL 5 MG TABLET (FOR DETOX USE ONLY) PO SCH (10:08)
[2018-11-04] MEDS: NICOTINE 14 MG/24 HOURS TOPICAL PATCH TD SCH (10:09)
[2018-11-04] MEDS: PRENATAL VITAMINS W/ FOLIC ACID TABLET (FP) PO SCH (10:09)
--- NOTE | 2018-11-04 12:23 | PN ---
[facility] CIWA - CIWA Score Nausea/Vomitin-No Nausea/No Vomiting Muscle Tremors: 3 Anxiety: 3 Agitation: 3 Paroxysmal Sweats: 2 Orientation: 0-Oriented Tacttile Disturbances: 0-None Auditory Disturbances: 0-None Visual Disturbances: 0-None Headache: 0-None Present CIWA-Ar Total Score: 11 [facility] Progress Note (SOAP) Subjective: teary eyes nasal congestion shakes sweats Objective: 11/04/18 13:30 Vital Signs Temperature 98.2 F 11/04/18 13:21 Pulse Rate 61 11/04/18 13:21 Respiratory Rate 18 11/04/18 13:21 Blood Pressure 121/56 L 11/04/18 13:21 O2 Sat by Pulse Oximetry (%) Laboratory Tests 11/03/18 11/03/18 11/03/18 07:00 07:00 07:00 WBC 5.3 RBC 4.31 Hgb 13.5 Hct 41.2 MCV 95.6 MCH 31.3 MCHC 32.7 RDW 12.6 Plt Count 177 MPV 8.6 D Sodium 137 Potassium 4.3 Chloride 102 Carbon Dioxide 29 Anion Gap 5 L BUN 20 H Creatinine 0.9 Creat Clearance w eGFR > 60 Random Glucose 83 Calcium 8.1 L Total Bilirubin 0.4 AST 48 H ALT 93 H Alkaline Phosphatase 71 Total Protein 6.5 Albumin 3.1 L RPR Titer Nonreactive aaox3 ambulating no acute distress Assessment: 11/04/18 13:31 withdrawal sx Plan: continue detox increase fluids
[2018-11-04] MEDS: MAG HYDROX/AL HYDROX/SIMETH 30 ML UNIT-DOSE CUP PO PRN (16:26)
[2018-11-04] MEDS: THIAMINE HCL 100 MG TABLET (FP) PO SCH (22:12)
[2018-11-05] MEDS: MELATONIN 5 MG TABLETS PO PRN ×2 (01:27→22:42)
[2018-11-05] MEDS: diazePAM 5 MG TABLET PO PRN ×2 (06:14→15:19)
[2018-11-05] MEDS: METHADONE HCL 5 MG TABLET (FOR DETOX USE ONLY) PO SCH (10:38)
[2018-11-05] MEDS: diazePAM 5 MG TABLET PO SCH ×2 (10:38→22:41)
[2018-11-05] MEDS: PRENATAL VITAMINS W/ FOLIC ACID TABLET (FP) PO SCH (10:39)
[2018-11-05] MEDS: NICOTINE 14 MG/24 HOURS TOPICAL PATCH TD SCH (10:39)
--- NOTE | 2018-11-05 12:29 | PN ---
[facility] Progress Note (SOAP) Subjective: sweats feeling alot better Objective: 11/05/18 12:29 Vital Signs Temperature 97.9 F 11/05/18 09:14 Pulse Rate 58 L 11/05/18 09:14 Respiratory Rate 18 11/05/18 09:14 Blood Pressure 111/68 11/05/18 09:14 O2 Sat by Pulse Oximetry (%) aaox3 ambulating no acute distress Assessment: 11/05/18 12:29 mild withdrawal sx Plan: continue detox increase fluids
--- NOTE | 2018-11-05 21:31 | PN ---
S Progress Note Note: (R) hand to wrist w/ scabbed track line approx 3 inches w/ increased tenderness , warmth and surrounding erythema. Radial pulse present. No edema of fingers. Cap refill < 3 sec. Vital Signs 11/05/18 11/05/18 14:02 18:23 Temperature 98.2 F 97.9 F Pulse Rate 73 103 H Respiratory 16 19 Rate Blood Pressure 100/55 L 153/56 L Assessment: Cellulitis Plan: Start Keflex
[2018-11-05] MEDS: MAG HYDROX/AL HYDROX/SIMETH 30 ML UNIT-DOSE CUP PO PRN (22:47)
[2018-11-05] MEDS: THIAMINE HCL 100 MG TABLET (FP) PO SCH (23:06)
[2018-11-05] MEDS: CEPHALEXIN MONOHYDRATE 500 MG CAPSULE (UD) PO SCH (23:15)
[2018-11-06] MEDS: hydrOXYzine PAMOATE 50 MG CAPSULE (FP) PO PRN ×4 (05:43→23:33)
[2018-11-06] MEDS: CEPHALEXIN MONOHYDRATE 500 MG CAPSULE (UD) PO SCH ×4 (05:43→23:08)
[2018-11-06] MEDS ORDERED: diazePAM 5 MG TABLET PO SCH (10:00)
[2018-11-06] MEDS ORDERED: METHADONE HCL 10 MG TABLET (FOR DETOX USE ONLY) PO SCH (10:00)
[2018-11-06] MEDS: PRENATAL VITAMINS W/ FOLIC ACID TABLET (FP) PO SCH (10:29)
[2018-11-06] MEDS: NICOTINE 14 MG/24 HOURS TOPICAL PATCH TD SCH (10:29)
--- NOTE | 2018-11-06 12:04 | PN ---
[facility] Progress Note (SOAP) Subjective: interrupted sleep, sweats, shakes , nausea Objective: 11/06/18 12:03 Vital Signs Temperature 97.3 F L 11/06/18 10:29 Pulse Rate 80 11/06/18 10:29 Respiratory Rate 18 11/06/18 10:29 Blood Pressure 105/73 11/06/18 10:29 O2 Sat by Pulse Oximetry (%) Laboratory Tests 11/03/18 11/03/18 11/03/18 07:00 07:00 07:00 WBC 5.3 RBC 4.31 Hgb 13.5 Hct 41.2 MCV 95.6 MCH 31.3 MCHC 32.7 RDW 12.6 Plt Count 177 MPV 8.6 D Sodium 137 Potassium 4.3 Chloride 102 Carbon Dioxide 29 Anion Gap 5 L BUN 20 H Creatinine 0.9 Creat Clearance w eGFR > 60 Random Glucose 83 Calcium 8.1 L Total Bilirubin 0.4 AST 48 H ALT 93 H Alkaline Phosphatase 71 Total Protein 6.5 Albumin 3.1 L RPR Titer Nonreactive pt aox3 in nad ambulating Assessment: 11/06/18 12:03 withdrawal sx;s Plan: cont. detox increase fluiids d/c in am
[2018-11-06 22:20] VITALS: TEMP 97.7
[2018-11-06] MEDS: THIAMINE HCL 100 MG TABLET (FP) PO SCH (22:40)
[2018-11-06] MEDS: MELATONIN 5 MG TABLETS PO PRN (23:08)
[2018-11-07] MEDS: CEPHALEXIN MONOHYDRATE 500 MG CAPSULE (UD) PO SCH (05:49)
[2018-11-07] MEDS: hydrOXYzine PAMOATE 50 MG CAPSULE (FP) PO PRN (05:51)
[2018-11-07] MEDS ORDERED: METHADONE HCL 5 MG TABLET (FOR DETOX USE ONLY) PO SCH (06:00)
[2018-11-07 07:00] VITALS: BP 117/70; PULSE 65
--- NOTE | 2018-11-07 10:52 | DS ---
[facility] Detox Discharge Summary Admission Date: 11/02/18 Discharge Date: 11/07/18 - History Additional Comments: Pt for discharge today Detox successfully completed. Pt had left unit prior to provider's arrival Vital Signs Temperature 97.7 F 11/06/18 22:18 Pulse Rate 65 11/07/18 06:59 Respiratory Rate 18 11/07/18 06:59 Blood Pressure 117/70 11/07/18 06:59 O2 Sat by Pulse Oximetry (%) Pertinent Past History: Cellulitis of hand Azotemia - Physical Exam Results Vital Signs: Vital Signs Temperature 97.7 F 11/06/18 22:18 Pulse Rate 65 11/07/18 06:59 Respiratory Rate 18 11/07/18 06:59 Blood Pressure 117/70 11/07/18 06:59 O2 Sat by Pulse Oximetry (%) Pertinent Admission Physical Exam Findings: withdrawal sx - Treatment Hospital Course: Detox Protocol Followed, Detoxed Safely, Responded well, Discharged Condition Good - Medication Discharge Medications: Ambulatory Orders Cephalexin Monohydrate [Keflex -] 500 mg PO Q6HPO #30 capsule 11/06/18 - Diagnosis (1) Cellulitis of hand, right Current Visit: Yes Status: Acute (2) Alcohol dependence with uncomplicated withdrawal Current Visit: Yes Status: Acute (3) Left elbow contusion Current Visit: No Status: Acute Qualifiers: Encounter type: initial encounter Qualified Code(s): S50.02XA - Contusion of left elbow, initial encounter (4) Nicotine dependence Current Visit: Yes Status: Chronic Qualifiers: Nicotine product type: cigarettes Substance use status: in withdrawal Qualified Code(s): F17.213 - Nicotine dependence, cigarettes, with withdrawal (5) Opioid dependence with withdrawal Current Visit: No Status: Chronic (6) Sedative, hypnotic or anxiolytic dependence with withdrawal, uncomplicated Current Visit: No Status: Chronic (7) Skin lesion due to intravenous drug abuse Current Visit: No Status: Chronic (8) Cocaine dependence, uncomplicated Current Visit: No Status: Chronic (9) Positive PPD Current Visit: No Status: Chronic - AMA Did Patient Leave Against Medical Advice: No
== END 2018-11-07 08:46 | disposition home or self-care (01) | DRG 773 ==
LOC: YASAS 11:36 → Y6N 15:56
PROC: HZ2ZZZZ Detoxification Services for Substance Abuse Treatment (ICD-10-PCS; principal; 2018-11-02)
DX: F11.23 Opioid dependence with withdrawal (principal); F10.230 Alcohol dependence with withdrawal, uncomplicated; F13.230 Sedative, hypnotic or anxiolytic dependence with withdrawal, uncomplicated; F14.20 Cocaine dependence, uncomplicated; F17.213 Nicotine dependence, cigarettes, with withdrawal; L03.113 Cellulitis of right upper limb; L90.5 Scar conditions and fibrosis of skin; R76.11 Nonspecific reaction to tuberculin skin test without active tuberculosis
CPT/HCPCS: 36415; 80053; 85027; 86593

== ENCOUNTER 2019-05-15 08:46 | Inpatient (IN) | payer OTHER ==
[2019-05-15 09:26] VITALS: BMI 19.2
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
[2019-05-15] MEDS ORDERED: MAG HYDROX/AL HYDROX/SIMETH 30 ML UNIT-DOSE CUP PO PRN (10:14)
[2019-05-15] MEDS ORDERED: IBUPROFEN 400 MG TABLET (FP) PO PRN (10:14)
[2019-05-15] MEDS ORDERED: MENTHOL/PHENOL 1 EACH UD MM PRN (10:14)
[2019-05-15] MEDS ORDERED: MAGNESIUM HYDROX 2400MG/30ML ORAL SUSPENSION 30 ML CUP PO PRN (10:14)
[2019-05-15] MEDS ORDERED: ACETAMINOPHEN 325 MG TABLET (FP) PO PRN ×2 (10:14)
[2019-05-15] MEDS ORDERED: hydrOXYzine PAMOATE 25 MG CAPSULE (FP) PO PRN (10:14)
[2019-05-15] MEDS ORDERED: BISMUTH SUBSALICYLATE 524 MG/30 ML UD PO PRN (10:14)
[2019-05-15] MEDS ORDERED: NICOTINE POLACRILEX 2 MG GUM BUC PRN (10:14)
[2019-05-15] MEDS ORDERED: MAGNESIUM CITRATE 300 ML BOTTLE PO PRN (10:14)
[2019-05-15] MEDS ORDERED: MELATONIN 5 MG TABLETS PO PRN (10:14)
[2019-05-15] MEDS: NICOTINE 21 MG/24 HOURS TOPICAL PATCH TD SCH (11:28)
[2019-05-15] MEDS: diazePAM 5 MG TABLET PO PRN ×2 (11:29→18:02)
[2019-05-15] MEDS: CEPHALEXIN MONOHYDRATE 500 MG CAPSULE (UD) PO SCH ×3 (11:29→23:12)
[2019-05-15] MEDS ORDERED: METHADONE HCL 10 MG TABLET PO ONE (11:30)
[2019-05-15 19:17] LABS: PH,URINE 5.5 (5.0-8.0); URINE APPEARANCE TURBID; URINE BILIRUBIN NEGATIVE (NEGATIVE); URINE COLOR YELLOW; URINE GLUCOSE (UA) NEGATIVE (NEGATIVE); URINE KETONE NEGATIVE (NEGATIVE); URINE LEUK ESTERASE NEGATIVE (NEGATIVE); URINE NITRITE NEGATIVE (NEGATIVE); URINE PROTEIN NEGATIVE (NEGATIVE)
[2019-05-15] MEDS: diazePAM 5 MG TABLET PO SCH (22:24)
[2019-05-15] MEDS: METHOCARBAMOL 500 MG TABLET PO PRN (22:25)
[2019-05-15] MEDS: THIAMINE HCL 100 MG TABLET (FP) PO SCH (22:26)
[2019-05-16] MEDS ORDERED: METHADONE HCL 10 MG TABLET PO ONE (06:00)
[2019-05-16] MEDS: CEPHALEXIN MONOHYDRATE 500 MG CAPSULE (UD) PO SCH ×4 (06:02→23:00)
[2019-05-16] MEDS: diazePAM 5 MG TABLET PO SCH ×4 (06:04→23:05)
[2019-05-16] MEDS: NICOTINE 21 MG/24 HOURS TOPICAL PATCH TD SCH (09:58)
[2019-05-16] MEDS: diazePAM 5 MG TABLET PO PRN ×3 (10:06→20:47)
[2019-05-16] MEDS: PRENATAL VITAMINS W/ FOLIC ACID TABLET (FP) PO SCH (10:06)
[2019-05-16 10:44] LABS: ALBUMIN 3.2 g/dl (3.4-5.0); BILIRUBIN,TOTAL 0.4 mg/dL (0.2-1); BLOOD UREA NITROGEN 13.3 mg/dL (7-18); CALCIUM 8.8 mg/dL (8.5-10.1); CREATININE 0.8 mg/dL (0.55-1.3); POTASSIUM 4.2 mmol/L (3.5-5.1); TOT PROT 6.7 g/dl (6.4-8.2)
[2019-05-16 10:45] LABS: HEMATOCRIT 41.1 % (35.4-49); HEMOGLOBIN 14.1 GM/dL (11.7-16.9); MCH 32.5 pg (25.7-33.7); MCHC 34.3 g/dl (32.0-35.9); MEAN CELL VOLUME 94.7 fl (80-96); MEAN PLT VOLUME 8.9 fl (7.5-11.1); PLATELET COUNT 193 K/MM3 (134-434); RBC 4.34 M/mm3 (4.00-5.60); RDW 12.4 % (11.9-15.9); WHITE BLOOD COUNT 5.9 K/mm3 (4.0-10.0)
[2019-05-16] MEDS: METHOCARBAMOL 500 MG TABLET PO PRN (13:53)
--- NOTE | 2019-05-16 14:26 | PN ---
[facility] CIWA - CIWA Score Nausea/Vomitin-Mild Nausea/No Vomiting Muscle Tremors: 3 Anxiety: 3 Agitation: 3 Paroxysmal Sweats: 3 Orientation: 0-Oriented Tacttile Disturbances: 0-None Auditory Disturbances: 0-None Visual Disturbances: 0-None Headache: 0-None Present CIWA-Ar Total Score: 13 S Progress Note (SOAP) Subjective: Stomachache, interrupted sleep Objective: 05/16/19 14:23 Last Vital Signs Temp Pulse Resp BP Pulse Ox 97.7 F 66 18 119/71 05/16/19 14:10 05/16/19 14:10 05/16/19 14:10 05/16/19 14:10 Laboratory Tests 05/15/19 05/16/19 05/16/19 15:39 08:00 08:00 WBC 5.9 RBC 4.34 Hgb 14.1 Hct 41.1 MCV 94.7 MCH 32.5 MCHC 34.3 RDW 12.4 Plt Count 193 MPV 8.9 Sodium 140 Potassium 4.2 Chloride 105 Carbon Dioxide 30 Anion Gap 5 L BUN 13.3 Creatinine 0.8 Est GFR (CKD-EPI)AfAm 133.20 Est GFR (CKD-EPI)NonAf 114.93 Random Glucose 89 Calcium 8.8 Total Bilirubin 0.4 AST 36 ALT 67 H Alkaline Phosphatase 77 Total Protein 6.7 Albumin 3.2 L Urine Color Yellow Urine Appearance Turbid Urine pH 5.5 Ur Specific [place] 1.027 Urine Protein Negative Urine Glucose (UA) Negative Urine Ketones Negative Urine Blood Negative Urine Nitrite Negative Urine Bilirubin Negative Urine Urobilinogen 1.0 Ur Leukocyte Esterase Negative RPR Titer 05/16/19 08:00 WBC RBC Hgb Hct MCV MCH MCHC RDW Plt Count MPV Sodium Potassium Chloride Carbon Dioxide Anion Gap BUN Creatinine Est GFR (CKD-EPI)AfAm Est GFR (CKD-EPI)NonAf Random Glucose Calcium Total Bilirubin AST ALT Alkaline Phosphatase Total Protein Albumin Urine Color Urine Appearance Urine pH Ur Specific [place] Urine Protein Urine Glucose (UA) Urine Ketones Urine Blood Urine Nitrite Urine Bilirubin Urine Urobilinogen Ur Leukocyte Esterase RPR Titer Nonreactive Labs reviewed Assessment: 05/16/19 14:24 Withdrawal symptoms Plan: Continue detox Encouraged PO water intake
[2019-05-16] MEDS: THIAMINE HCL 100 MG TABLET (FP) PO SCH (22:08)
[2019-05-17] MEDS: diazePAM 5 MG TABLET PO PRN ×2 (02:48→10:14)
[2019-05-17] MEDS: CEPHALEXIN MONOHYDRATE 500 MG CAPSULE (UD) PO SCH ×2 (05:16→12:02)
[2019-05-17] MEDS ORDERED: METHADONE HCL 10 MG TABLET PO ONE (06:00)
[2019-05-17] MEDS ORDERED: diazePAM 5 MG TABLET PO ONE (06:00)
[2019-05-17] MEDS: NICOTINE 21 MG/24 HOURS TOPICAL PATCH TD SCH (10:13)
[2019-05-17] MEDS: PRENATAL VITAMINS W/ FOLIC ACID TABLET (FP) PO SCH (10:13)
[2019-05-17] MEDS: METHOCARBAMOL 500 MG TABLET PO PRN (12:02)
--- NOTE | 2019-05-17 13:12 | PN ---
S CIWA - CIWA Score Nausea/Vomitin-No Nausea/No Vomiting Muscle Tremors: None Anxiety: 1-Mildly Anxious Agitation: 1-Slight > Activity Paroxysmal Sweats: No Perspiration Orientation: 0-Oriented Tacttile Disturbances: 0-None Auditory Disturbances: 0-None Visual Disturbances: 0-None Headache: 0-None Present CIWA-Ar Total Score: 2 [facility] Progress Note (SOAP) Subjective: feeling much better Objective: 05/17/19 13:11 Vital Signs Temperature 97.5 F L 05/17/19 09:13 Pulse Rate 57 L 05/17/19 09:13 Respiratory Rate 17 05/17/19 09:13 Blood Pressure 109/67 05/17/19 09:13 O2 Sat by Pulse Oximetry (%) Laboratory Tests 05/15/19 05/16/19 05/16/19 15:39 08:00 08:00 WBC 5.9 RBC 4.34 Hgb 14.1 Hct 41.1 MCV 94.7 MCH 32.5 MCHC 34.3 RDW 12.4 Plt Count 193 MPV 8.9 Sodium 140 Potassium 4.2 Chloride 105 Carbon Dioxide 30 Anion Gap 5 L BUN 13.3 Creatinine 0.8 Est GFR (CKD-EPI)AfAm 133.20 Est GFR (CKD-EPI)NonAf 114.93 Random Glucose 89 Calcium 8.8 Total Bilirubin 0.4 AST 36 ALT 67 H Alkaline Phosphatase 77 Total Protein 6.7 Albumin 3.2 L Urine Color Yellow Urine Appearance Turbid Urine pH 5.5 Ur Specific [place] 1.027 Urine Protein Negative Urine Glucose (UA) Negative Urine Ketones Negative Urine Blood Negative Urine Nitrite Negative Urine Bilirubin Negative Urine Urobilinogen 1.0 Ur Leukocyte Esterase Negative RPR Titer 05/16/19 08:00 WBC RBC Hgb Hct MCV MCH MCHC RDW Plt Count MPV Sodium Potassium Chloride Carbon Dioxide Anion Gap BUN Creatinine Est GFR (CKD-EPI)AfAm Est GFR (CKD-EPI)NonAf Random Glucose Calcium Total Bilirubin AST ALT Alkaline Phosphatase Total Protein Albumin Urine Color Urine Appearance Urine pH Ur Specific [place] Urine Protein Urine Glucose (UA) Urine Ketones Urine Blood Urine Nitrite Urine Bilirubin Urine Urobilinogen Ur Leukocyte Esterase RPR Titer Nonreactive aaox3 ambulating no acute distress Assessment: 05/17/19 13:12 no s/s of withdrawals noted Plan: d/c today
--- NOTE | 2019-05-17 13:14 | DS ---
[facility] Detox Discharge Summary Admission Date: 05/15/19 Discharge Date: 05/17/19 - History Present History: Cocaine Dependence, Opioid Dependence, Sedative Dependence, MMTP - Physical Exam Results Vital Signs: Vital Signs Temperature 97.5 F L 05/17/19 09:13 Pulse Rate 57 L 05/17/19 09:13 Respiratory Rate 17 05/17/19 09:13 Blood Pressure 109/67 05/17/19 09:13 O2 Sat by Pulse Oximetry (%) - Treatment Hospital Course: Detox Protocol Followed, Detoxed Safely, Responded well, Discharged Condition Good, Rehab Referral Accepted - Medication Discharge Medications: Ambulatory Orders NK [No Known Home Medication] 05/15/19 - AMA Did Patient Leave Against Medical Advice: No (declined aftercare; referred back to his mmtp)
[2019-05-17 13:57] VITALS: BP 105/66; PULSE 62; TEMP 97.9
[2019-05-18] MEDS ORDERED: METHADONE HCL 10 MG TABLET PO SCH (06:00)
== END 2019-05-17 14:35 | disposition home or self-care (01) | DRG 773 ==
LOC: YASAS 08:46 → Y6N 10:21
PROVIDERS: ADMIT Surgery; ATTEND Surgery
PROC: HZ2ZZZZ Detoxification Services for Substance Abuse Treatment (ICD-10-PCS; principal; 2019-05-15)
DX: F11.23 Opioid dependence with withdrawal (principal); F10.230 Alcohol dependence with withdrawal, uncomplicated; F13.230 Sedative, hypnotic or anxiolytic dependence with withdrawal, uncomplicated; F14.20 Cocaine dependence, uncomplicated; F17.210 Nicotine dependence, cigarettes, uncomplicated; L03.114 Cellulitis of left upper limb; R76.11 Nonspecific reaction to tuberculin skin test without active tuberculosis; L90.5 Scar conditions and fibrosis of skin
CPT/HCPCS: 36415; 80053; 81003; 85027; 86593